=== PATIENT | male | born 1935 | race Caucasian/White ===

== ENCOUNTER → 2019-05-02 10:17 | Outpatient (BNVA) | payer MEDICARE, SELFPAY | PROVIDERS: Family Provider Nurse Practitioner Family; PCP Nurse Practitioner Family; Referring Provider Family Medicine; Visit Provider Nurse Practitioner Family | DX: E53.8 Deficiency of other specified B group vitamins (principal); Z12.5 Encounter for screening for malignant neoplasm of prostate; E34.9 Endocrine disorder, unspecified | CPT/HCPCS: 36415; 82607; 84153; 84402; 84403 ==

== ENCOUNTER 2019-05-20 09:25 | Outpatient (CLI) | payer MEDICARE, SELFPAY ==
--- NOTE | 2019-05-20 09:30 | MR_ITS ---
WS: [id number] MRI HEAD WITHOUT CONTRAST TECHNIQUE: Sagittal T1, T2 axial, T2 axial FLAIR, axial and coronal T1 images, axial susceptibility w eighted imaging, axial diffusion weighted images, and coronal T2 images were obtained. Gadolinium not administered due to stage III kidney disease. CLINICAL INFORMATION: symptomatic for CVA COMPARISON: CT 3 FINDINGS: No evidence of restricted diffusion to suggest acute ischemia. Ventricular system and basal cisterns are patent. Moderate small vessel changes with moderate parenchymal volume loss. Chronic infarcts in the right periventricular and subcortical white matter. Normal posterior fossa. Normal vascular flow voids at the skull base. No extra-axial fluid collections. No evidence of mass or mass effect. Small vessel changes in the lucio. Paranasal sinuses and mastoid air cells are well aerated. Small punctate focus of hemosiderin in the right lateral thalamus. Moderate atrophy involving the tem poral lobes and hippocampal formations. MR/MR head wo con* [id number] IMPRESSION: 1. No evidence of restricted diffusion to suggest acute ischemia. 2. Moderate small vessel changes with moderate parenchymal volume loss. 3. A few chronic appearing infarcts in the right subcortical white matter and right periventricular white matter. 4. Small vessel changes in the lucio. 5. Small focus of hemosiderin in the right lateral thalamus. 6. Moderate symmetric atrophy involving the temporal lobes and hippocampal for mations.
[2019-05-20 10:07] LABS: Blood Urea Nitrogen 19 mg/dL (8-23)
== END 2019-05-20 09:26 | disposition home or self-care (01) ==
LOC: RADSHAW 09:25
PROVIDERS: Family Provider Nurse Practitioner Family; PCP Nurse Practitioner Family; Visit Provider Nurse Practitioner Family
DX: I63.9 Cerebral infarction, unspecified (principal); G31.89 Other specified degenerative diseases of nervous system
CPT/HCPCS: 70551; 82565; 84520

== ENCOUNTER → 2019-06-18 12:18 | Outpatient (BNVA) | payer MEDICARE, SELFPAY | PROVIDERS: Family Provider Nurse Practitioner Family; PCP Nurse Practitioner Family; Visit Provider Nurse Practitioner Family | DX: N18.9 Chronic kidney disease, unspecified (principal); E53.8 Deficiency of other specified B group vitamins | CPT/HCPCS: 80048; 81001; 82310; 82575; 83735; 83970; 84100; 84156; 84550; 87086 ==

== ENCOUNTER → 2019-07-02 09:16 | Outpatient (BNVA) | payer MEDICARE, SELFPAY | PROVIDERS: Family Provider Nurse Practitioner Family; PCP Nurse Practitioner Family; Visit Provider Nurse Practitioner Family | DX: R53.83 Other fatigue (principal); E55.9 Vitamin D deficiency, unspecified; E34.9 Endocrine disorder, unspecified; I10 Essential (primary) hypertension; E53.8 Deficiency of other specified B group vitamins; Z79.899 Other long term (current) drug therapy; E78.2 Mixed hyperlipidemia; Z12.5 Encounter for screening for malignant neoplasm of prostate | CPT/HCPCS: 80053; 80061; 81001; 82306; 82607; 82652; 82746; 83036; 84403; 84439; 84443; 84481; G0103 ==

== ENCOUNTER → 2019-07-16 12:10 | Outpatient (BNVA) | payer MEDICARE, SELFPAY | PROVIDERS: Family Provider Nurse Practitioner Family; PCP Nurse Practitioner Family; Visit Provider Nurse Practitioner Family | DX: E87.6 Hypokalemia (principal); J22 Unspecified acute lower respiratory infection; L25.9 Unspecified contact dermatitis, unspecified cause; F41.9 Anxiety disorder, unspecified; G20 Parkinson's disease | CPT/HCPCS: 80053 ==

== ENCOUNTER 2019-09-16 06:00 | Outpatient (RCR) | payer MEDICARE, SELFPAY | END 2019-09-29 23:59 | disposition home or self-care (01) | LOC: WPT 06:00 | PROVIDERS: PCP Nurse Practitioner Family; Referring Provider Psychiatry & Neurology Neurology; Visit Provider Psychiatry & Neurology Neurology | DX: G20 Parkinson's disease (principal) | CPT/HCPCS: 97110; 97161 ==

== ENCOUNTER 2019-09-30 06:00 | Outpatient (RCR) | payer MEDICARE, SELFPAY | END 2019-10-29 23:59 | disposition home or self-care (01) | LOC: WPT 06:00 | PROVIDERS: PCP Nurse Practitioner Family; Visit Provider Psychiatry & Neurology Neurology | DX: G20 Parkinson's disease (principal) | CPT/HCPCS: 97110; 97112; 97116; 97161; 97530 ==

== ENCOUNTER → 2019-10-24 09:24 | Outpatient (BNVA) | payer MEDICARE, SELFPAY | PROVIDERS: PCP Nurse Practitioner Family; Visit Provider Nurse Practitioner Family | DX: E11.9 Type 2 diabetes mellitus without complications (principal); I10 Essential (primary) hypertension; G20 Parkinson's disease; E55.9 Vitamin D deficiency, unspecified; R53.83 Other fatigue; E34.9 Endocrine disorder, unspecified; E61.2 Magnesium deficiency | CPT/HCPCS: 36415; 80053; 81001; 82306; 82607; 83036; 83540; 83735; 84403; 84443; 85025 ==

== ENCOUNTER 2019-10-30 | Outpatient (RCR) | payer MEDICARE, SELFPAY | END 2019-10-30 23:00 | disposition home or self-care (01) | LOC: WPT | PROVIDERS: PCP Nurse Practitioner Family; Visit Provider Psychiatry & Neurology Neurology | DX: G20 Parkinson's disease (principal) | CPT/HCPCS: 80053; 81001 ==

== ENCOUNTER → 2020-05-19 10:04 | Outpatient (BNVA) | payer MEDICARE, SELFPAY | PROVIDERS: PCP Nurse Practitioner Family; Visit Provider Nurse Practitioner Family | DX: N40.1 Benign prostatic hyperplasia with lower urinary tract symptoms (principal); E29.1 Testicular hypofunction | CPT/HCPCS: 84153; 84403 ==

== ENCOUNTER → 2020-06-19 11:19 | Outpatient (BNVA) | payer MEDICARE, SELFPAY | PROVIDERS: PCP Nurse Practitioner Family; Visit Provider Internal Medicine Nephrology | DX: E53.8 Deficiency of other specified B group vitamins (principal); N18.30 Chronic kidney disease, stage 3 unspecified | CPT/HCPCS: 80048; 81003; 82043; 82310; 82607; 83735; 83970; 84100; 84550 ==

== ENCOUNTER → 2020-08-13 11:36 | Outpatient (BNVA) | payer MEDICARE, SELFPAY | PROVIDERS: PCP Nurse Practitioner Family; Visit Provider Nurse Practitioner Family | DX: E21.3 Hyperparathyroidism, unspecified (principal); I10 Essential (primary) hypertension; Z13.6 Encounter for screening for cardiovascular disorders; Z79.899 Other long term (current) drug therapy | CPT/HCPCS: 80053; 80061; 81003; 82310; 82652; 83036; 83970; 84439; 84443; 85025 ==

== ENCOUNTER → 2020-08-21 00:01 | Outpatient (BNVA) | payer MEDICARE, SELFPAY | PROVIDERS: PCP Nurse Practitioner Family; Visit Provider Nurse Practitioner Family | DX: E53.8 Deficiency of other specified B group vitamins (principal); N18.9 Chronic kidney disease, unspecified; F41.9 Anxiety disorder, unspecified; F32.9 Major depressive disorder, single episode, unspecified | CPT/HCPCS: 80053; 82043; 83921 ==

== ENCOUNTER → 2020-08-25 11:51 | Outpatient (BNVA) | payer MEDICARE, SELFPAY | PROVIDERS: PCP Nurse Practitioner Family; Visit Provider Nurse Practitioner Family | DX: E53.8 Deficiency of other specified B group vitamins (principal); I10 Essential (primary) hypertension | CPT/HCPCS: 80053; 82746 ==

== ENCOUNTER → 2020-09-15 09:51 | Outpatient (BNVA) | payer MEDICARE, SELFPAY | PROVIDERS: PCP Nurse Practitioner Family; Visit Provider Nurse Practitioner Family | DX: N18.9 Chronic kidney disease, unspecified (principal); I10 Essential (primary) hypertension; E21.3 Hyperparathyroidism, unspecified; E11.9 Type 2 diabetes mellitus without complications; Z79.899 Other long term (current) drug therapy | CPT/HCPCS: 36415; 80048; 82306; 82310; 83970; 84100 ==

== ENCOUNTER 2020-12-07 13:01 | Outpatient (CLI) | payer MEDICARE, SELFPAY ==
--- NOTE | 2020-12-07 13:00 | USCV_ITS ---
Juma Lewis Age: 85 Gender: M : 1935 Exam Date: 12/07/2020 13:24 Ordering Phys: DMITRY Parada APRN Technologist: Teresa Escamilla Exam Location: [facility] – [place] Indication: OPEN DOG BITE RT LOWER LATERAL LEG HISTORY: Pitbull dog bite rt lateral lower leg. PROCEDURES: Venous duplex imaging was performed in only the right lower extremity. The following venous structures were evaluated: common femoral vein, profunda vein, proximal portion of the greater saphenous vein, superficial femoral vein, and the popliteal vein. In addition, the posterior tibial and peroneal trunk were evaluated. Serial compression, augmentation maneuvers, and spectral Doppler flow evaluation were performed. Also area at the puncture wounds was exained. FINDINGS: Normal 2-D Doppler and augmentation and compressibility throughout the lower extremity venous structures. Additional imaging through the proximal calf veins also reveals no thrombus. Limited evaluation of the greater saphenous vein is patent with no thrombus.. Suggestion of a hematoma at site of injury. CONCLUSIONS No evidence of right lower extremity DVT. Subcutaneous edema or hematoma in area of dog bite Stephan Razo MD (Electronically Signed) Final Date: 07 December 2020 17:42 S
== END 2020-12-07 13:02 | disposition home or self-care (01) ==
PROVIDERS: PCP Nurse Practitioner Family; Visit Provider Nurse Practitioner Family
DX: S81.851A Open bite, right lower leg, initial encounter (principal); M79.89 Other specified soft tissue disorders; W54.0XXA Bitten by dog, initial encounter
CPT/HCPCS: 93971

== ENCOUNTER → 2021-01-18 11:44 | Outpatient (BNVA) | payer MEDICARE, SELFPAY | PROVIDERS: PCP Nurse Practitioner Family; Visit Provider Nurse Practitioner Family | DX: N18.31 Chronic kidney disease, stage 3a (principal); E11.9 Type 2 diabetes mellitus without complications; I10 Essential (primary) hypertension | CPT/HCPCS: 80048; 81003; 82040; 82310; 82542; 82575; 83036; 83735; 83970; 84100; 84156; 84550 ==

== ENCOUNTER → 2021-05-11 12:14 | Outpatient (BNVA) | payer MEDICARE, SELFPAY | PROVIDERS: PCP Nurse Practitioner Family; Visit Provider Nurse Practitioner Family | DX: N40.1 Benign prostatic hyperplasia with lower urinary tract symptoms (principal) | CPT/HCPCS: 36415; 84153; 84403 ==

== ENCOUNTER → 2021-07-19 13:27 | Outpatient (BNVA) | payer MEDICARE, SELFPAY | PROVIDERS: PCP Nurse Practitioner Family; Visit Provider Internal Medicine Nephrology | DX: N18.9 Chronic kidney disease, unspecified (principal) | CPT/HCPCS: 36415; 80048; 81003; 82040; 82310; 83735; 83970; 84100; 84550; 85018 ==

== ENCOUNTER → 2021-09-07 10:06 | Outpatient (BNVA) | payer MEDICARE, SELFPAY | PROVIDERS: PCP Nurse Practitioner Family; Visit Provider Nurse Practitioner | DX: R35.0 Frequency of micturition (principal); F41.9 Anxiety disorder, unspecified | CPT/HCPCS: 87086 ==

== ENCOUNTER → 2022-01-17 12:03 | Outpatient (BNVA) | payer MEDICARE, SELFPAY | PROVIDERS: PCP Nurse Practitioner; Visit Provider Nurse Practitioner | DX: I12.9 Hypertensive chronic kidney disease with stage 1 through stage 4 chronic kidney disease, or unspecified chronic kidney disease (principal); N18.30 Chronic kidney disease, stage 3 unspecified | CPT/HCPCS: 80048; 81003; 82040; 82306; 82542; 82570; 83735; 84100; 84156; 85018 ==

== ENCOUNTER → 2022-01-18 12:50 | Outpatient (BNVA) | payer MEDICARE, SELFPAY | PROVIDERS: PCP Nurse Practitioner; Visit Provider Internal Medicine | DX: I12.9 Hypertensive chronic kidney disease with stage 1 through stage 4 chronic kidney disease, or unspecified chronic kidney disease (principal); E11.22 Type 2 diabetes mellitus with diabetic chronic kidney disease; N18.9 Chronic kidney disease, unspecified; Z79.84 Long term (current) use of oral hypoglycemic drugs; R42 Dizziness and giddiness | CPT/HCPCS: 99213; 99214 ==

== ENCOUNTER → 2022-05-17 15:14 | Outpatient (BNVA) | payer MEDICARE, SELFPAY | PROVIDERS: PCP Nurse Practitioner; Visit Provider Nurse Practitioner | DX: N40.1 Benign prostatic hyperplasia with lower urinary tract symptoms (principal); E29.1 Testicular hypofunction; N40.0 Benign prostatic hyperplasia without lower urinary tract symptoms | CPT/HCPCS: 84153; 84403 ==

== ENCOUNTER → 2022-10-18 14:07 | Outpatient (BNVA) | payer MEDICARE, SELFPAY | PROVIDERS: PCP Nurse Practitioner; Visit Provider Internal Medicine | DX: I12.9 Hypertensive chronic kidney disease with stage 1 through stage 4 chronic kidney disease, or unspecified chronic kidney disease (principal); E11.22 Type 2 diabetes mellitus with diabetic chronic kidney disease; N18.9 Chronic kidney disease, unspecified; R42 Dizziness and giddiness | CPT/HCPCS: 99213 ==

== ENCOUNTER → 2022-11-11 11:27 | Outpatient (BNVA) | payer MEDICARE, SELFPAY | PROVIDERS: PCP Nurse Practitioner; Visit Provider Surgery | DX: R31.9 Hematuria, unspecified (principal) | CPT/HCPCS: 81000 ==

== ENCOUNTER 2022-11-17 11:18 | Outpatient (CLI) | payer MEDICARE, SELFPAY ==
--- NOTE | 2022-11-17 11:31 | MR_ITS ---
WS: [id number] MRI HEAD WITHOUT CONTRAST TECHNIQUE: Sagittal T1, T2 axial, T2 axial FLAIR, axial and coronal T1 images, axial susceptibility w eighted imaging, axial diffusion weighted images, and coronal T2 images were obtained. CLINICAL INFORMATION: WEAKNESS/DISORIENTATION COMPARISON: MRI May 20, 2019 FINDINGS: No evidence of restricted diffusion to suggest acute ischemia. Ventricular system and basal cisterns are patent. Mild small vessel changes. Moderate parenchymal volume loss. Chronic lacunar infarcts in the cerebellum bilaterally. These are new from previous. Normal vascular flow voids at the skull base . No extra-axial fluid collections. No evidence of mass or mass effect. Paranasal sinuses and mastoid air cells well aerated. Small focus of hemosiderin in the RIGHT lateral thalamus. Moderate to advanced symmetric atrophy temp oral lobes and hippocampal formations. Normal optic chiasm and pituitary infundibulum. Tiny chronic l acunar infarct in the RIGHT periventricular white matter. Tiny chronic lacunar infarcts in the LEFT m idbrain and RIGHT lucio. MR/MR head wo con* [id number] IMPRESSION: 1. No evidence of restricted diffusion to suggest acute ischemia. 2. Mild small vessel changes slightly progressed. Moderate parenchymal volume loss appears stable. 3. Multiple chronic lacunar infarcts in the cerebellum bilaterally. New from p revious. 4. Small chronic lacunar infarcts in the RIGHT periventricular white matter, t iny LEFT midbrain, and tiny RIGHT lucio are stable compared to previous. 5. Tiny punctate focus of chronic hemosiderin in the RIGHT lateral thalamus al leonora the posterior limb internal capsule. 6. Moderate symmetric atrophy temporal lobes and hippocampal formations.
== END 2022-11-17 11:19 | disposition home or self-care (01) ==
PROVIDERS: PCP Nurse Practitioner; Visit Provider Psychiatry & Neurology Neurology
DX: R53.1 Weakness (principal); R41.0 Disorientation, unspecified; Z86.73 Personal history of transient ischemic attack (TIA), and cerebral infarction without residual deficits
CPT/HCPCS: 70551

== ENCOUNTER 2022-11-22 14:25 | Outpatient (CLI) | payer MEDICARE, SELFPAY ==
--- NOTE | 2022-11-22 | US_ITS ---
WS: [id number] RENAL ULTRASOUND URINARY BLADDER ULTRASOUND HISTORY: STAGE 3 CHRONIC KIDNEY DISEASE COMPARISON: None available. TECHNIQUE: 2-D and color Doppler imaging of the kidney submitted. Right kidney: 10.3 cm x 4.3 cm x 4.7 cm. Normal size kidney with mild increased echogenicity. No mass or obstruction. Left kidney: 10.8 cm x 4.9 cm x 5.3 cm. Normal size kidney with mild increased echogenicity. Cortical cyst mid kidney measures 2.6 x 2.3 x 1. 6 cm. No solid mass. Aorta: Normal. Urinary Bladder: Well-distended urinary bladder. No intraluminal filling defect. Prevoid volume is 30 1 mL. Post void volume of 144 mL. Mildly heterogeneous prostate gland. Prostate measures 4.3 x 3.0 x 3.4 cm. No significant encroachmen t into the urinary bladder. US/US renal BI with PV bladder IMPRESSION: 1. Mild chronic medical renal disease. No atrophy at this time. 2. No renal obstruction. 3. Moderate post void residual.
[2022-11-22 15:39] LABS: Blood Urea Nitrogen 19 mg/dL (8-23); Calcium 8.9 mg/dL (8.5-10.5); Carbon Dioxide 30 mmol/L (22-29); Chloride 102 mmol/L (98-107); Glucose 96 mg/dL (65-115); Osmolality Calculated 290 mOsm/kg (285-295); Sodium 139 mmol/L (136-145)
[2022-11-22 15:50] LABS: Anion Gap 11.6 (5-19); Potassium 4.6 mmol/L (3.5-5.1)
== END 2022-11-22 14:26 | disposition home or self-care (01) ==
PROVIDERS: PCP Nurse Practitioner; Visit Provider Internal Medicine
DX: N18.30 Chronic kidney disease, stage 3 unspecified (principal)
CPT/HCPCS: 36415; 76770; 76857; 80048

== ENCOUNTER 2022-12-29 06:00 | Outpatient (RCR) | payer MEDICARE, SELFPAY | END 2022-12-29 23:59 | disposition home or self-care (01) | LOC: WPT 06:00 | PROVIDERS: Visit Provider Psychiatry & Neurology Neurology | DX: G20 Parkinson's disease (principal) | CPT/HCPCS: 97110; 97162 ==

== ENCOUNTER 2022-12-30 06:00 | Outpatient (RCR) | payer MEDICARE, SELFPAY | END 2023-01-28 23:59 | disposition home or self-care (01) | LOC: WPT 06:00 | PROVIDERS: Visit Provider Psychiatry & Neurology Neurology | DX: G20 Parkinson's disease (principal) | CPT/HCPCS: 97110; 97112; 97530 ==

== ENCOUNTER 2023-01-29 06:00 | Outpatient (RCR) | payer MEDICARE, SELFPAY | END 2023-02-28 23:59 | disposition home or self-care (01) | LOC: WPT 06:00 | PROVIDERS: Visit Provider Psychiatry & Neurology Neurology | DX: G20.A1 Parkinson's disease without dyskinesia, without mention of fluctuations (principal) | CPT/HCPCS: 97110; 97112; 97530 ==

== ENCOUNTER 2023-03-01 06:00 | Outpatient (RCR) | payer MEDICARE, SELFPAY | END 2023-03-30 23:59 | disposition home or self-care (01) | LOC: WPT 06:00 | PROVIDERS: PCP Nurse Practitioner Family; Visit Provider Psychiatry & Neurology Neurology | DX: G20.C Parkinsonism, unspecified (principal) | CPT/HCPCS: 97110; 97112; 97530 ==

== ENCOUNTER 2023-03-31 06:00 | Outpatient (RCR) | payer MEDICARE, SELFPAY | END 2023-04-30 23:59 | disposition home or self-care (01) | LOC: WPT 06:00 | PROVIDERS: PCP Nurse Practitioner Family; Visit Provider Psychiatry & Neurology Neurology | DX: G20.C Parkinsonism, unspecified (principal) | CPT/HCPCS: 97110; 97112; 97530 ==

== ENCOUNTER → 2023-04-12 14:34 | Outpatient (BNVA) | payer MEDICARE, SELFPAY | PROVIDERS: PCP Nurse Practitioner Family; Visit Provider Nurse Practitioner Family | DX: R10.9 Unspecified abdominal pain (principal) | CPT/HCPCS: 80053; 81003; 83735; 84100; 85025 ==

== ENCOUNTER → 2023-06-26 13:23 | Outpatient (BNVA) | payer MEDICARE, SELFPAY | PROVIDERS: PCP Nurse Practitioner Family; Visit Provider Nurse Practitioner Family | DX: R53.83 Other fatigue (principal); I10 Essential (primary) hypertension; E53.8 Deficiency of other specified B group vitamins; N18.9 Chronic kidney disease, unspecified; E21.3 Hyperparathyroidism, unspecified; Z79.899 Other long term (current) drug therapy | CPT/HCPCS: 80053; 81000; 82607; 82728; 82746; 83036; 84443; 85025 ==

== ENCOUNTER 2023-07-05 11:24 | Emergency (ER) | payer MEDICARE, SELFPAY ==
[2023-07-05] VITALS (7 sets, daily range): BP systolic 149–201; BP diastolic 81–97; PULSE 61–89; RESP 18; TEMP 36.4; O2SAT 98–100
--- NOTE | 2023-07-05 12:26 | CT_ITS ---
WS: [id number] CT ABDOMEN PELVIS TECHNIQUE: Noncontrast CT of the abdomen and pelvis with coronal and sagittal reformatted images. CLINICAL INFORMATION: right flank pain COMPARISON: None. DLP: 591.[address] scans at [facility] use at least one of these dose optimization techniques: automated e xposure control; mA and/or kV adjustment per patient size (includes targeted exams where dose is matc hed to clinical indication); or iterative reconstruction. FINDINGS: No hydronephrosis in either kidney. No obstructing renal or ureteral calculi. Evidence of bladder outlet obstruction. Diffuse bladder wall thickening. Enlarged prostate with inden tation of the bladder. Prostate measures 3.2 x 4.3 cm thickening of the seminal vesicles.. Slight bib nikkie atelectasis. Tiny esophageal hiatal hernia. Noncontrast liver is normal. Splenic granulomas. Fat ty atrophy of the pancreas. Normal caliber abdominal aorta. Aortic calcification. Rectal constipation. Sigmoid diverticulosis. No evidence of acute diverticulitis. Prior appendectomy. Prior cholecystectomy. Tiny bilateral adrenal adenomas. Disc space narrowing worse at L5-S1. IMPRESSION: 1. No hydronephrosis in either kidney. No obstructing renal or ureteral calculi. 2. Enlarged prostate with evidence of bladder outlet obstruction. Thickening of the seminal vesicles . Recommend correlation PSA. 3. Prior appendectomy and cholecystectomy. 4. Dense sigmoid constipation. 5. Extensive sigmoid diverticulosis. No evidence of acute diverticulitis.
--- NOTE | 2023-07-05 12:42 | PC.PHAR ---
pts daughter verified pts medications-pts daughter states the pt takes modafinil 100mg daily prn ext shows last filled 50mg bid 03/31/23 90d/s-pts daughter states the pts flomax was increased last week pts daughter states the pt takes flomax 0.8mg bedtime ext shows last filled 05/03/23 90d/s-pts daughter states the pts desmopression 0.1mg hs was dced
--- NOTE | 2023-07-05 12:59 | ED_ITS ---
HPI - Back Pain/Injury 2 General: Chief Complaint: Back Pain/Injury Stated Complaint: back pain Time Seen by Provider: 07/05/23 12:21 Source: patient Mode of arrival: ambulatory Limitations: no limitations History of Present Illness: 87-year-old male states been having inte rmittent flank and back pain for the last 3 months. He states his pain seems to be worse with movement he states this morning when he got out of bed it hurt to twist states the pain is improved with rest. He states his PCP had felt that it was possibly his kidney he does have a history of some chronic kidney disease he denies any dysuria denies any abdominal pain denies any vomiting Associated symptoms: Deny abdominal pain, chills, dysuria, fever(s), nausea or vomiting Review of Systems 2 Const: Denies: fever(s), chills, body aches or change in appetite ENMT: Denies: throat pain or dental pain Card: Denies: chest pain Resp: Denies: dyspnea GI: Denies: abdominal pain, nausea, vomiting or diarrhea : Reports: flank pain; Denies: dysuria Musc: Reports: back pain; Denies: neck pain Skin/Breast: Denies: rash Neuro: Denies: headache(s) PFSH ED 2 PFSH: Medical History BPH (benign prostatic hyperplasia) Right flank pain Need for vaccination Dental infection Hematoma Dog bite of calf Vitamin B 12 deficiency Hypertension screen Hyperparathyroidism Chronic kidney disease (CKD) Diabetes Essential hypertension Parkinsons disease Patient recently diagnosed (06/2019) with Stage 2 Parkinson's in [place]. Anxiety and depression Needs flu shot CVA (cerebral vascular accident) 05/10/18 Patient has symtpoms of CVA and has scheduled appointment with Neurologist in [place]. Patient needs to have MRI w/wo. Social History Smoking and tobacco/nicotine status: never used tobacco/nicotine Physical Exam 2 Const: COMMON NORMALS: no acute distress, patient oriented x3 and healthy appearing HENMT: COMMON NORMALS: normocephalic and atraumatic HEAD & SCALP: n ormocephalic and atraumatic Neck/C-Spine: COMMON NORMALS: full ROM and supple Chest: COMMONS NORMALS: normal inspection of the chest Resp: COMMON NORMALS: normal respiratory effort, No retractions, No use of accessory muscles and clear to auscultation bilaterally AUSCULTATION: clear to auscultation bilaterally Cardio: COMMON NORMALS: regular rate, regular rhythm and No murmurs present (Cardio) RATE: regular rate RHYTHM: regular rhythm GI: COMMON NORMALS: Normal to inspection, nondistended, normoactive bowel sounds present, Soft to palpation, non-tender and no masses PALPATION: Yes Soft to palpation : COMMON NORMALS: Yes no CVA tenderness BLADDER/KIDNEY EXAM: Yes no CVA tenderness Back/Pelvis: COMMON NORMALS: no CVA tenderness OTHER: Tenderness is noted to right lower back he is point tender on exam over right lumbar Extremity: COMMON NORMALS: normal to inspection and full ROM Neuro: COMMON NORMALS: patient oriented x3, moves all extremities and no focal motor deficits Psych: COMMON NORMALS: mental status grossly normal, Normal thought process present and cooperative THOUGHT PROCESS: Normal thought process present Skin: COMMON NORMALS: no rashes or lesions noted and no wounds GENERAL SKIN EXAM: no rashes or lesions noted Course 2 Vital Signs: Vital signs: Vital Signs Temperature 97.6 F 07/05/23 11:37 Pulse Rate 64 07/05/23 14:30 Respiratory Rate 18 07/05/23 11:37 Blood Pressure 201/88 07/05/23 14:30 Pulse Oximetry 100 07/05/23 14:30 Oxygen Delivery Me thod Room Air 07/05/23 14:30 MDM - Back Pain/Injury Medical Decision Making Patient presents here with flank and back pains likely muscular in nature he is point tender on exam patient is stable for discharge this [facility] blood work and urine are all normal. He is stable for discharge he is follow-up with PCP and return if worsening he has had some hypertensive here and I informed him he needs to take a log as well Medical Records I reviewed the patient's medical records. Labs I reviewed the patient's lab results. 07/05/23 12:45 07/05/23 12:45 Laboratory Results WBC 7.35 10^3/uL (3.29-11.43) 07/05/23 12:45 RBC 3.88 10^6/uL (3.85-5.65) 07/05/23 12:45 Hgb 11.50 g/dL (11.27-16.99) 07/05/23 12:45 Hct 36.1 % (37-53) L 07/05/23 12:45 MCV 93.0 fl (82-101) 07/05/23 12:45 MCH 29.6 pg (27-33) 07/05/23 12:45 MCHC 31.9 g/dL (30-55) 07/05/23 12:45 RDW 14.5 % (12.1-15.1) 07/05/23 12:45 Plt Count 229 10^3/cmm (157-399) 07/05/23 12:45 MPV 10.9 fL (7.4-10.4) H 07/05/23 12:45 Neut % (Auto) 61.3 % 07/05/23 12:45 Lymph % (Auto) 25.4 % 07/05/23 12:45 [place] % (Auto) 11.0 % 07/05/23 12:45 Eos % (Auto) 1.6 % 07/05/23 12:45 Baso % (Auto) 0.4 % 07/05/23 12:45 Neut # (Auto) 4.50 10^3/uL (1.8-7.7) 07/05/23 12:45 Lymph # (Auto) 1.9 10^3/uL (0.8-4.8) 07/05/23 12:45 [place] # (Auto) 0.8 10^3/uL (0.2-0.9) 07/05/23 12:45 Eos # (Auto) 0.1 10^3/uL (0.0-0.8) 07/05/23 12:45 Baso # (Auto) 0.0 10^3/uL (0.0-0.1) 07/05/23 12:45 Nucleated RBC % (auto) 0 % 07/05/23 12:45 Nucleated RBCs # 0.0 /100WBC 07/05/23 12:45 Sodium 139 mmol/L (136-145) 07/05/23 12:45 Potassium 4.0 mmol/L (3.5-5.1) 07/05/23 12:45 Chloride 103 mmol/L (98-107) 07/05/23 12:45 Carbon Dioxide 28 mmol/L (22-29) 07/05/23 12:45 Anion Gap 12.0 (5-19) 07/05/23 12:45 BUN 32 mg/dL (8-23) H 07/05/23 12:45 Creatinine 1.6 mg/dL (0.7-1.2) H 07/05/23 12:45 GFR Calculation Not Reportable 07/05/23 12:45 Glucose 88 mg/dL (65-115) 07/05/23 12:45 Calculated Osmolality 294 mOsm/kg (285-295) 07/05/23 12:45 Calcium 8.7 mg/dL (8.5-10.5) 07/05/23 12:45 Total Bilirubin 0.4 mg/dL (0.15-1.2) 07/05/23 12:45 AST 13 U/L (0-40) 07/05/23 12:45 ALT < 5 U/L (0-41) 07/05/23 12:45 Alkaline Phosphatase 61 U/L (40-130) 07/05/23 12:45 Total Protein 6.9 g/dL (6.6-8.7) 07/05/23 12:45 Albumin 3.5 g/dL (3.5-5.2) 07/05/23 12:45 Globulin 3.4 g/dL (1.3-4.6) 07/05/23 12:45 Lipase 52 U/L (13-60) 07/05/23 12:45 Urine Color Yellow (Yellow) 07/05/23 13:43 Urine Appearance Clear (CLEAR) 07/05/23 13:43 Urine pH 6 (5-7) 07/05/23 13:43 Ur Specific [place] 1.020 (1.005-1.030) 07/05/23 13:43 Urine Protein 1+ (Negative) H 07/05/23 13:43 Urine Glucose (UA) Norm (Normal) 07/05/23 13:43 Urine Ketones Negative (Negative) 07/05/23 13:43 Urine Blood Neg (Negative) 07/05/23 13:43 Urine Nitrate Negative (Negative) 07/05/23 13:43 Urine Bilirubin Neg (Negative) 07/05/23 13:43 Urine Urobilinogen Norm mg/dL (Negative) 07/05/23 13:43 Ur Leukocyte Esterase Negative (Negative) 07/05/23 13:43 Urine RBC Rare /hpf (0-2) 07/05/23 13:43 Urine WBC Rare /hpf (0-5) 07/05/23 13:43 Ur Squamous Epith Cells None /hpf (0-5) 07/05/23 13:43 Ur Transition Epith Cell 0-4 /hpf 07/05/23 13:43 Amorphous Sediment Not Reportable 07/05/23 13:43 Urine Bacteria Trace /hpf (NONE) 07/05/23 13:43 Hyaline Casts 5-10 /lpf H 07/05/23 13:43 Urine Mucus 2+ /hpf 07/05/23 13:43 All radiology interpretation(s) finalized by discharge Discharge Plan Discharge Patient Disposition: Home Clinical Impression: Low back pain Condition: Stable Prescriptions: New methocarbamol 750 mg tablet 750 mg PO Q6H PRN (Reason: spasms) Qty: 20 0RF Naprosyn 500 mg tablet 500 mg PO BID PRN (Reason: pain) Qty: 20 0RF No Action carbidopa-levodopa 25-100 mg tablet See Rx Instructions .ROUTE .COMPLEX Rx Instructions: take one tab at 3:00am,one tab at 7:00am,one and one half tab at 11:00,one tab at 15:00 and one tab at 19:00 modafinil 100 mg tablet 100 mg PO DAILY PRN (Reason: unknown) brimonidine-timolol [Combigan] 0.2-0.5 % drops 1 drp ophthalmic (eye) BID Rx Instructions: both eyes calcitriol 0.25 mcg capsule 0.25 mcg PO .TWICE WEEKLY Rx Instructions: on tamsulosin 0.4 mg capsule 0.8 mg PO BEDTIME cyanocobalamin (vitamin B-12) 1,000 mcg/mL solution 1,000 mcg IM Q30D valsartan 80 mg tablet 80 mg PO BID Qty: 180 3RF potassium chloride [Klor-Con M20] 20 mEq tablet,ER particles/crystals 20 meq PO QID Qty: 360 3RF iron 325 mg (65 mg iron) Tablet 325 mg PO DAILY@11 testosterone 20.25 mg/1.25 gram (1.62 %) gel in metered-dose pump See Rx Instructions .ROUTE .COMPLEX Rx Instructions: apply 2 pumps TO shoulders AND upper ARMS EVERY MORNING Tadalafil 20mg Melissa See Rx Instructions .ROUTE .COMPLEX Rx Instructions: with tri-mix injectable as directed citalopram 10 mg tablet 10 mg PO QPM Rx Instructions: take with 20mg to =30mg citalopram 20 mg tablet 20 mg PO QPM Rx Instructions: take with 10mg to =30mg Discharge Orders: Discharge ED (Routine); Ordered 07/05/23 Ordered By: Davi Hahn Referrals: DMITRY Parada, FINISHING ROOM OPERATOR [Primary Care Provider] - 1-3 days Discharge Diet: Advance as tolerated Discharge Activity: Resume usual activity Patient Instructions: Back Pain (ED) Coding Level of Care Code ED Front Desk Supervisor for David Casas
[2023-07-05 13:19] LABS: Basophils % 0.4 %; Eosinophils # 0.1 10^3/uL (0.0-0.8); Eosinophils % 1.6 %; Hematocrit 36.1 % (37-53); Lymphocytes # 1.9 10^3/uL (0.8-4.8); Lymphocytes % 25.4 %; Mean Corpuscular HGB Conc 31.9 g/dL (30-55); Mean Corpuscular Hemoglobin 29.6 pg (27-33); Mean Platelet Volume 10.9 fL (7.4-10.4); Monocytes # 0.8 10^3/uL (0.2-0.9); Neutrophils % 61.3 %; Nucleated Red Blood Cells % 0 %; Platelet Count 229 10^3/cmm (157-399); Red Blood Count 3.88 10^6/uL (3.85-5.65); Red Cell Distribution Width 14.5 % (12.1-15.1); White Blood Count 7.35 10^3/uL (3.29-11.43)
[2023-07-05 13:38] LABS: Alanine Aminotransferase < 5 U/L (0-41); Albumin Level 3.5 g/dL (3.5-5.2); Alkaline Phosphatase 61 U/L (40-130); Aspartate Amino Transferase 13 U/L (0-40); Blood Urea Nitrogen 32 mg/dL (8-23); Calcium 8.7 mg/dL (8.5-10.5); Carbon Dioxide 28 mmol/L (22-29); Chloride 103 mmol/L (98-107); Globulin 3.4 g/dL (1.3-4.6); Glucose 88 mg/dL (65-115); Lipase 52 U/L (13-60); Osmolality Calculated 294 mOsm/kg (285-295); Sodium 139 mmol/L (136-145); Total Bilirubin 0.4 mg/dL (0.15-1.2); Total Protein 6.9 g/dL (6.6-8.7)
[2023-07-05 13:48] LABS: Creatinine Clr Calc Pharmacy 36.8502
[2023-07-05 14:23] LABS: Add Urine Microscopic? YES; Bilirubin Urine Neg (Negative); Blood Urine Neg (Negative); Glucose Urine UA Norm (Normal); Ketones Urine Negative (Negative); Leukocyte Esterase Urine Negative (Negative); Nitrate Urine Negative (Negative); Protein Urine 1+ (Negative); Urine Appearance Clear (CLEAR); Urine Color Yellow (Yellow); Urobilinogen Urine Norm (Negative); pH Urine 6 (5-7)
[2023-07-05 14:39] LABS: Add Urine Culture? No; Bacteria Urine TRACE /hpf; Mucus Urine 2+ /hpf; RBC Urine RARE /hpf (0-2); Transitional Epi Cells Urine 0-4 /hpf; WBC Urine RARE /hpf (0-5)
[2023-07-05] MEDS: hyDRALAzine 20 mg/mL INJ 1 mL 10 MG IVP (14:41)
== END 2023-07-05 15:25 | disposition home or self-care (01) ==
PROVIDERS: Emergency Provider Emergency Medicine; PCP Nurse Practitioner Family
DX: M54.50 Low back pain, unspecified (principal); I12.9 Hypertensive chronic kidney disease with stage 1 through stage 4 chronic kidney disease, or unspecified chronic kidney disease; E11.22 Type 2 diabetes mellitus with diabetic chronic kidney disease; N18.9 Chronic kidney disease, unspecified; G20.A1 Parkinson's disease without dyskinesia, without mention of fluctuations; Z86.73 Personal history of transient ischemic attack (TIA), and cerebral infarction without residual deficits
CPT/HCPCS: 36415; 74176; 80053; 81001; 83690; 85025; 96374; 99285; J0360

== ENCOUNTER → 2023-07-19 14:26 | Outpatient (BNVA) | payer MEDICARE, SELFPAY | PROVIDERS: PCP Nurse Practitioner Family; Visit Provider Internal Medicine | DX: I10 Essential (primary) hypertension (principal); R42 Dizziness and giddiness | CPT/HCPCS: 99213 ==

== ENCOUNTER → 2023-07-27 10:47 | Outpatient (BNVA) | payer MEDICARE, SELFPAY | PROVIDERS: PCP Nurse Practitioner Family; Visit Provider Nurse Practitioner Family | DX: D64.9 Anemia, unspecified (principal) | CPT/HCPCS: 82728; 83540 ==

== ENCOUNTER → 2023-09-07 11:05 | Outpatient (BNVA) | payer MEDICARE, SELFPAY | PROVIDERS: PCP Nurse Practitioner Family; Visit Provider Nurse Practitioner Family | DX: N18.9 Chronic kidney disease, unspecified (principal); D64.9 Anemia, unspecified | CPT/HCPCS: 80053; 81003; 82728; 83550; 85025 ==

== ENCOUNTER → 2023-09-19 10:52 | Outpatient (BNVA) | payer MEDICARE, SELFPAY | PROVIDERS: PCP Nurse Practitioner Family; Visit Provider Nurse Practitioner Family | DX: D64.9 Anemia, unspecified (principal); E83.51 Hypocalcemia; E55.9 Vitamin D deficiency, unspecified; E53.8 Deficiency of other specified B group vitamins | CPT/HCPCS: 80053; 82306; 82607; 82746 ==

== ENCOUNTER → 2023-10-11 12:52 | Outpatient (BNVA) | payer MEDICARE, SELFPAY | PROVIDERS: PCP Nurse Practitioner Family; Visit Provider Family Medicine | DX: Z13.6 Encounter for screening for cardiovascular disorders (principal); N18.9 Chronic kidney disease, unspecified; G20.A2 Parkinson's disease without dyskinesia, with fluctuations; E61.1 Iron deficiency | CPT/HCPCS: 80053; 83550; 85025 ==

== ENCOUNTER → 2023-10-17 11:42 | Outpatient (BNVA) | payer MEDICARE, SELFPAY | PROVIDERS: PCP Nurse Practitioner Family; Visit Provider Family Medicine | DX: Z13.6 Encounter for screening for cardiovascular disorders (principal); N18.9 Chronic kidney disease, unspecified; G20.A2 Parkinson's disease without dyskinesia, with fluctuations; E61.1 Iron deficiency | CPT/HCPCS: 80053; 83550 ==

== ENCOUNTER 2023-11-30 18:33 | Emergency (ER) | payer MEDICARE, SELFPAY ==
[2023-11-30 18:38] VITALS: BP 189/82; PULSE 72; RESP 17; TEMP 36.7; O2SAT 98; BMI 25.8
--- NOTE | 2023-11-30 18:58 | CTR_ITS ---
PROCEDURE INFORMATION: Exam: CT Cervical Spine Without Contrast Exam date and time: 11/30/2023 8:10 PM Age: 88 years old Clinical indication: Injury or trauma; Fall; Blunt trauma TECHNIQUE: Imaging protocol: Computed tomography of the cervical spine without contrast. Radiation optimization: All CT scans at this facility use at least one of these dose optimization techniques: automated exposure control; mA and/or kV adjustment per patient size (includes targeted exams where dose is matched to clinical indication); or iterative reconstruction. COMPARISON: CT head wo con* [id number] 11/30/2023 8:10 PM RADIATION DOSE METRICS: Total DLP (mGy-cm): 705.2 FINDINGS: Bones: No acute fracture. Normal alignment. No severe spinal canal stenosis. No significant neural foraminal narrowing. Mild degenerative changes with small endplate osteophytes and facet arthropathy. Lungs: Biapical pleural-parenchymal scarring. Soft tissues: Unremarkable. CT/CT cervical spin wo con* [id number] IMPRESSION: No acute fractures or subluxations. Mild cervical spondylosis.
--- NOTE | 2023-11-30 18:58 | XRR_ITS ---
PROCEDURE INFORMATION: Exam: XR Right Hip Exam date and time: 11/30/2023 7:52 PM Age: 88 years old Clinical indication: Injury or trauma; Fall; Other: Pain; Additional info: Fall, pelvic and RT hip pain, RT leg externally rotated upon arrival TECHNIQUE: Imaging protocol: Radiologic exam of the right hip. Views: 1 view hip with pelvis when performed. COMPARISON: CT kidney stone [id number] 07/05/2023 12:46 PM FINDINGS: Bones/joints: No acute fractures or subluxations. The femoral heads are well seated within the bilateral acetabula. The pubic symphysis and sacroiliac joints are well aligned. Moderate degenerative changes of the bilateral hips, right greater than left, with joint space narrowing and subchondral sclerosis. Soft tissues: Unremarkable. XR/XR hip RT 2-3V wo/w pel* [id number] IMPRESSION: No acute fractures or subluxations.
--- NOTE | 2023-11-30 18:58 | CTR_ITS ---
PROCEDURE INFORMATION: Exam: CT Head Without Contrast Exam date and time: 11/30/2023 8:10 PM Age: 88 years old Clinical indication: Injury or trauma; Fall; Abrasion; Forehead TECHNIQUE: Imaging protocol: Computed tomography of the head without contrast. Radiation optimization: All CT scans at this facility use at least one of these dose optimization techniques: automated exposure control; mA and/or kV adjustment per patient size (includes targeted exams where dose is matched to clinical indication); or iterative reconstruction. COMPARISON: MR head wo con* [id number] 11/17/2022 11:49 AM RADIATION DOSE METRICS: Total DLP (mGy-cm): 1256 FINDINGS: Brain: No acute intracranial hemorrhage or territorial infarction. No mass effect or midline shift. Chronic infarct within periventricular right frontal lobe. Chronic lacunar infarcts within the cerebellar hemispheres. Moderate microangiopathy. Cerebral ventricles: No ventriculomegaly. Paranasal sinuses: Visualized sinuses are unremarkable. No fluid levels. Mastoid air cells: Visualized mastoid air cells are well aerated. Bones: Unremarkable. No acute fracture. Soft tissues: Small abrasion to the forehead. CT/CT head wo con* [id number] IMPRESSION: 1. No acute intracranial findings. 2. Chronic infarctions in the periventricular right frontal lobe and bilateral cerebellar hemispheres. 3. Moderate microangiopathy.
[2023-11-30 19:50] VITALS: BP 220/102; PULSE 76; RESP 16; O2SAT 98
--- NOTE | 2023-11-30 20:04 | ED_ITS ---
HPI - Extremity Problem General: Chief complaint: Extremity Injury, Lower Stated complaint: fall, hit head, pelvis/ hip pain Time Seen by Provider: 11/30/23 19:48 History of Present Illness: 88-year-old male presents with right hip pain. Patient fell earlier today around 330. Patient reports he had a misstep going into his house when he fell. He has had a hard time bearing weight and pain with movement. He complains a little bit of weakness in the left hip but mainly discomfort in the right hip. Associated symptoms: Deny chest pain or fever(s) Review of Systems Const: Denies: fever(s) or chills Card: Denies: chest pain or palpitations Resp: Denies: dyspnea, productive cough or non-productive cough GI: Denies: abdominal pain, nausea or vomiting Musc: Reports: joint pain (Right hip); Denies: neck pain or back pain Neuro: Denies: headache(s), sensory changes or dizziness PFSH ED PFSH: Medical History Hypocalcemia Vitamin D deficiency Anemia BPH (benign prostatic hyperplasia) Right flank pain Need for vaccination Dental infection Hematoma Dog bite of calf Vitamin B 12 deficiency Hypertension screen Hyperparathyroidism Chronic kidney disease (CKD) Diabetes Essential hypertension Parkinsons disease Patient recently diagnosed (06/2019) with Stage 2 Parkinson's in [place]. Anxiety and depression Needs flu shot CVA (cerebral vascular accident) 05/10/18 Patient has symtpoms of CVA and has scheduled appointment with Neurologist in [place]. Patient needs to have MRI w/wo. Social History Smoking and tobacco/nicotine status: never used tobacco/nicotine Physical Exam Const: COMMON NORMALS: no acute distress, patient oriented x3 and alert Resp: COMMON NORMALS: normal respiratory effort, No retractions, No use of accessory muscles and clear to auscultation bilaterally AUSCULTATION: clear to auscultation bilaterally Cardio: COMMON NORMALS: regular rate RATE: regular rate GI: COMMON NORMALS: Soft to palpation and non-tender PALPATION: Yes Soft to palpation Extremity: RIGHT LOWER EXTREMITY: Yes hip joint (Tender to palpation, externally rotated and shortened) LEFT LOWER EXTREMITY: Yes hip joint (Mild tenderness) Neuro: COMMON NORMALS: patient oriented x3, no focal motor deficits and no sensory deficits noted SENSORIUM/ORIENTATION: Yes alert Course Vital Signs: Vital signs: Vital Signs Temperature 98.1 F 11/30/23 18:38 Pulse Rate 76 11/30/23 19:50 Respiratory Rate 16 11/30/23 20:35 Blood Pressure 220/102 11/30/23 19:50 Pulse Oximetry 98 11/30/23 19:50 Oxygen Delivery Me thod Room Air 11/30/23 19:50 MDM - Extremity (Nontraumatic) Medical Decision Making Patient imaging studies ordered reviewed with final interpretation per radiology report. Patient shows no acute findings on his hip and pelvis x-rays and no acute findings on his head CT. Patient's symptoms are consistent with right hip contusion from the fall. Patient is stable and ready be discharged home. Lab Data Radiology Impressions Cervical Spine CT 11/30/23 18:58 IMPRESSION: No acute fractures or subluxations. Mild cervical spondylosis. Head CT 11/30/23 18:58 IMPRESSION: 1. No acute intracranial findings. 2. Chronic infarctions in the periventricular right frontal lobe and bilateral cerebellar hemispheres. 3. Moderate microangiopathy. Hip/Pelvis X-Ray 11/30/23 18:58 IMPRESSION: No acute fractures or subluxations. All radiology interpretation(s) finalized by discharge Discharge Plan Discharge Patient Disposition: Home Clinical Impression: Contusion of right hip, Fall from slip, trip, or stumble Condition: Stable Prescriptions: No Action carbidopa-levodopa 25-100 mg tablet See Rx Instructions .ROUTE .COMPLEX Rx Instructions: take one tab at 3:00am,one tab at 7:00am,one and one half tab at 11:00,one tab at 15:00 and one tab at 19:00 brimonidine-timolol [Combigan] 0.2-0.5 % drops 1 drp ophthalmic (eye) BID Rx Instructions: both eyes calcitriol 0.25 mcg capsule 0.25 mcg PO .TWICE WEEKLY Rx Instructions: on tamsulosin 0.4 mg capsule 0.8 mg PO BEDTIME cyanocobalamin (vitamin B-12) 1,000 mcg/mL solution 1,000 mcg IM Q30D modafinil 200 mg tablet 200 mg PO DAILY desmopressin 0.1 mg tablet PO valsartan 80 mg tablet See Rx Instructions .ROUTE .COMPLEX Qty: 180 3RF Dose Instruction: TAKE 1 TABLET BY MOUTH TWICE DAILY Rx Instructions: TAKE 1 TABLET BY MOUTH TWICE DAILY citalopram 20 mg tablet 20 mg PO QPM Qty: 30 0RF Rx Instructions: take with 10mg to =30mg citalopram 10 mg tablet See Rx Instructions .ROUTE .COMPLEX Qty: 30 2RF Dose Instruction: TAKE 1 TABLET BY MOUTH EVERY DAY WITH 20 MG Rx Instructions: TAKE 1 TABLET BY MOUTH EVERY DAY WITH 20 MG potassium chloride [Klor-Con M20] 20 mEq tablet,ER particles/crystals 20 meq PO QID Qty: 360 3RF iron 325 mg (65 mg iron) Tablet 325 mg PO DAILY@11 testosterone 20.25 mg/1.25 gram (1.62 %) gel in metered-dose pump See Rx Instructions .ROUTE .COMPLEX Rx Instructions: apply 2 pumps TO shoulders AND upper ARMS EVERY MORNING Tadalafil 20mg Melissa See Rx Instructions .ROUTE .COMPLEX Rx Instructions: with tri-mix injectable as directed Discharge Orders: Discharge ED (Routine); Ordered 11/30/23 Ordered By: Mauro Hyman Referrals: DMITRY Parada, TECHNICAL PROJECT COORDINATOR [Primary Care Provider] - Discharge Diet: Usual diet Discharge Activity: Increase activity as tolerated Patient Instructions: Contusion, Hip Contusion (ED), Opioid Safety, Pain Management Activity Restrictions/Additional Instructions: Tylenol ibuprofen as needed for discomfort. Follow-up with your primary care provider if symptoms not improved over the next week. Coding Level of Care Code ED Caption Writer for David Casas
[2023-11-30 20:35] VITALS: RESP 16
[2023-11-30] MEDS: fentaNYL 50 mcg/mL INJ 2mL 25 MCG IVP (20:35)
[2023-11-30 21:47] VITALS: BP 195/101; PULSE 93; RESP 17; O2SAT 95
[2023-11-30 21:49] VITALS: BP 195/101; PULSE 93; RESP 17; TEMP 36.7; O2SAT 95
== END 2023-11-30 21:50 | disposition home or self-care (01) ==
PROVIDERS: Emergency Provider Student in an Organized Health Care Education/Training Program; PCP Nurse Practitioner Family
DX: S70.01XA Contusion of right hip, initial encounter (principal); W01.0XXA Fall on same level from slipping, tripping and stumbling without subsequent striking against object, initial encounter
CPT/HCPCS: 70450; 72125; 73502; 96374; 99285; J3010

== ENCOUNTER → 2023-12-19 15:35 | Outpatient (BNVA) | payer MEDICARE, SELFPAY | PROVIDERS: PCP Nurse Practitioner Family; Visit Provider Nurse Practitioner Family | DX: D64.9 Anemia, unspecified (principal); E55.9 Vitamin D deficiency, unspecified | CPT/HCPCS: 73502; 82306; 82728; 83550 ==

== ENCOUNTER 2023-12-22 07:55 | Outpatient (CLI) | payer MEDICARE, SELFPAY ==
--- NOTE | 2023-12-22 08:00 | CT_ITS ---
WS: [id number] CT RIGHT HIP, NONCONTRAST HISTORY: T14.8XXA - Other injury of unspecified body region, initi... Technique: All CT scans at [facility] use at least one of these dose optimization techniques: automated exposure control; mA and/or kV adjustment per patient size (includes targeted exams where dose is matched to clinical indication); or iterative reconstruction. DLP: 265.40 mGy.cm COMPARISON: RIGHT hip radiograph 12/19/2023 Acute appearing impacted subcapital RIGHT hip fracture. Not significantly displaced. very minimal na rrowing of the hip joint. Mild soft tissue stranding from the recent trauma. No large hematoma. There is chronic muscle atrophy. Scattered calcifications in the femoral artery and deep profunda. CT/CT hip RT wo con* [id number] IMPRESSION: 1. Acute, impacted, nondisplaced subcapital RIGHT hip fracture. 2. Mild soft tissue contusion. 3. Notified JHONNY Kearney at 12/22/2023 8:42 AM.
== END 2023-12-22 07:56 | disposition home or self-care (01) ==
LOC: RAD 07:56
PROVIDERS: PCP Nurse Practitioner Family; Visit Provider Nurse Practitioner Family
DX: S72.011A Unspecified intracapsular fracture of right femur, initial encounter for closed fracture (principal); X58.XXXA Exposure to other specified factors, initial encounter
CPT/HCPCS: 73700

== ENCOUNTER 2023-12-25 09:48 | Day surgery (SDC) | payer MEDICARE, SELFPAY ==
[2023-12-25] VITALS (24 sets, daily range): BP systolic 131–209; BP diastolic 69–122; PULSE 46–66; RESP 10–20; TEMP 36.2–36.4; O2SAT 94–100
[2023-12-25] MEDS: sodium chloride 0.9% 1,000 ML 30 ML IV (10:42)
[2023-12-25] MEDS: acetaminophen 1,000 MG/100 ML PIGGYBACK 400 MG IV (10:43)
[2023-12-25] MEDS: gabapentin 300 mg Capsule PO (10:45)
[2023-12-25] MEDS: CELEcoxib 200 mg Capsule 400 MG PO (10:45)
--- NOTE | 2023-12-25 10:48 | P.ANESASSM_ITS ---
Pre-Anesthetic Assessment Height/Weight: Height 1.79 m Temp Pulse Resp BP Pulse Ox O2 Del Method 97.6 F 61 18 160/93 100 Room Air 12/25/23 10:14 12/25/23 10:14 12/25/23 10:14 12/25/23 10:14 12/25/23 10:14 12/25/23 10:17 Operation Date: 12/25/23 11:30 Proposed Procedures p Hip Screw(Right) - Lilibeth Garcia MD Familial anesthetic complications: > 8 hrs Was Beta Carine taken within 24 hours: N/A Was Clonidine taken within 24 hours: N/A Last intake: Intake Last Liquid Date 12/24/23 Last Liquid Time 17:00 Last Solid Date 12/24/23 Last Solid Time 17:00 Social No alcohol and No tobacco Exam alert, oriented x 3, clear to auscultation bilaterally and regular rate & rhythm Airway Mallampati: Class II Dentition: false CV/HEM Hypertension Request for Service CATHLAB Diagnostic Findings Patient with atypical symptoms convinced that his heart is abnormal. Coronary angiography scheduled. Procedure done from the right radial artery. No left ventriculogram done due to renal insufficiency. The coronary arteries were completely normal. 01/29/19 Request for Cardiac Stress Test CONCLUSION: Please note due to baseline abnormality of the EKG specificity and sensitivity of the EKG portion of LexiScan MIBI stress test will be low 1. EKG not suggestive of ischemia 2. Lexiscan injection unremarkable. 3. Perfusion scan will be documented separately. Electronically Signed On 01-29-2019 17:19:02 CDT by Jan Geronimo M.D. 01/29/19 NM MIBI/MIBI Stress/Rest [id number] IMPRESSIONS Medium-size area of moderate reversibility suggestive of ischemia noted in basal to mid inferior and inferolateral wall with possible lesion in RCA or circumflex territory. Please note that patient was not able to perform the prone images therefore cannot rule out artifact. EKG segment will be documented separately. Jan Geronimo MD (Electronically Signed) 01/16/19 - Echocardiogram* [id number] CONCLUSIONS Normal left ventricular size, systolic function and wall thickness, with no regional wall motion abnormalities. Grade I/IV diastolic dysfunction (abnormal relaxation filling pattern), normal to mildly elevated filling pressures. Left ventricular ejection fraction is estimated at 65 %. Mildly increased left atrial size. Structurally normal mitral valve. Mild mitral valve regurgitation. There are no prior echocardiogram studies to compare. Dr. Iam Saldana MD (Electronically Signed) Chronic Renal Insufficiency Metabolic Diabetes Mellitus Neuropsych Cerebrovascular Accident Anesthetic Plan ASA status: 3 Anesthesia: Regional (specify below) Other: Patient and family requesting spinal Risk of > 500 ml blood loss (7ml/kg in children): No Medications/Allergies Home Medications Medication Instructions Recorded Confirmed Last Taken Type calcitriol 0.25 mcg capsule 0.25 mcg PO .TWICE WEEKLY 08/13/20 12/25/23 12/21/23 History brimonidine 0.2 %-timolol 0.5 % 1 drp ophthalmic (eye) BID 01/18/22 12/25/23 12/25/23 History eye drops (Combigan) carbidopa 25 mg-levodopa 100 mg 1 tab PO DIRECTED 10/18/22 12/25/23 12/25/23 07:00 History tablet cyanocobalamin (vitamin B-12) 1,000 mcg IM Q30D 12/22/22 12/25/23 11/22/23 History 1,000 mcg/mL injection solution tamsulosin 0.4 mg capsule 0.8 mg PO BEDTIME 12/22/22 12/25/23 12/22/23 History Tadalafil 20mg Melissa See Rx Instructions .Route .COMPLEX 07/05/23 12/25/23 Unknown History ferrous sulfate 325 mg (65 mg 325 mg PO DAILY@11 07/05/23 12/25/23 12/22/23 History iron) tablet (iron) testosterone See Rx Instructions .Route .COMPLEX 07/05/23 12/25/23 12/22/23 History desmopressin 0.1 mg tablet 0.1 mg PO DAILY 10/11/23 12/25/23 12/22/23 History modafinil 200 mg tablet 200 mg PO DAILY 10/11/23 12/25/23 12/22/23 History potassium chloride 20 mEq 20 meq PO QID #360 tabs 11/20/23 12/25/23 12/22/23 Rx tablet,extended release(part/cryst) (Klor-Con M) mirabegron 25 mg tablet,extended 25 mg PO DAILY 12/19/23 12/25/23 12/22/23 History release 24 hr (Myrbetriq) citalopram 10 mg tablet 10 mg PO DAILY 12/22/23 12/25/23 12/22/23 History valsartan 80 mg tablet 80 mg PO BID 12/22/23 12/25/23 12/22/23 History Allergies Allergy/AdvReac Type Severity Reaction Status Date / Time lisinopril Allergy cough Verified 12/25/23 08:32 Current Medications Generic Name Dose Route Start Last Admin Trade Name Angelina PRN Reason Stop Dose Admin Sodium Chloride 1,000 mls @ 30 mls/hr 12/25/23 10:00 12/25/23 10:42 Sodium Chloride 0.9% IV 12/26/23 09:59 30 mls/hr .Q24H LADARIUS Administration PFSH Anesthesia Medical History (Updated 12/25/23 @ 08:54 by BASSAM Aguilar) Subcapital fracture of right hip Nondisplaced fracture Fall at home Right hip pain Hypocalcemia Vitamin D deficiency Anemia BPH (benign prostatic hyperplasia) Right flank pain Need for vaccination Dental infection Hematoma Dog bite of calf Vitamin B 12 deficiency Hypertension screen Hyperparathyroidism Chronic kidney disease (CKD) Diabetes Essential hypertension Parkinsons disease Patient recently diagnosed (06/2019) with Stage 2 Parkinson's in [place]. Anxiety and depression Needs flu shot CVA (cerebral vascular accident) 05/10/18 Patient has symtpoms of CVA and has scheduled appointment with Neurologist in [place]. Patient needs to have MRI w/wo. 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
[2023-12-25 11:43] LABS: Anion Gap 15.1 (5-19); Blood Urea Nitrogen 25 mg/dL (8-23); Calcium 8.6 mg/dL (8.5-10.5); Carbon Dioxide 27 mmol/L (22-29); Chloride 104 mmol/L (98-107); Glucose 113 mg/dL (65-115); Osmolality Calculated 299 mOsm/kg (285-295); Potassium 4.1 mmol/L (3.5-5.1); Sodium 142 mmol/L (136-145)
--- NOTE | 2023-12-25 11:45 | P.HPUD_ITS ---
Surgery/Procedure H&P Update DATE OF PROCEDURE: December 25, 2023 DATE H&P PERFORMED: 12/22/23 H&P UPDATE INFORMATION: I have reviewed H&P completed within last 30 days, I have examined patient prior to procedure, No changes to prior documentation and H&P is in [facility] EMR on date indicated PRIMARY INDICATION FOR PROCEDURE: Right subcapital hip fracture PLANNED PROCEDURE: Operation Date: 12/25/23 11:30 Proposed Procedures p Hip Screw(Right) - Lilibeth Garcia MD Related Problem List Diagnoses (1) Subcapital fracture of right hip: Qualifiers: Encounter type: initial encounter Fracture type: closed Qualified Code(s): S72.011A - Unspecified intracapsular fracture of right femur, initial encounter for closed fracture
[2023-12-25] MEDS: ceFAZolin 2,000 mg SDV 2000 MG IV (12:03)
[2023-12-25] MEDS: ceFAZolin 1,000 mg SDV 1000 MG IRRIGATION (12:51)
[2023-12-25] MEDS: BUPivacaine-epi 0.5% 10 ML INJ 30 ML INJECTION (12:52)
--- NOTE | 2023-12-25 13:55 | XR_ITS ---
WS: [id number] Exam: XR hip RT 2-3V wo/w pel* [id number] Date/Time of Exam: 12/25/2023 1:56 PM Reason For Exam: OR PICS Comparison with radiographs performed on the same day. Subcapital fracture of the RIGHT hip is now stabilized with 3 orthopedic nails in satisfactory positi on for healing. XR/XR hip RT 2-3V wo/w pel* [id number] IMPRESSION: 1. Satisfactory internal fixation of subcapital fracture of the RIGHT hip.
--- NOTE | 2023-12-25 13:55 | PM.OP ---
Operative Report Date of procedure: December 25, 2023 Pre-op diagnosis: Right subcapital hip fracture Post-op diagnosis: Right subcapital hip fracture Post-op findings: Nondisplaced, impacted right subcapital hip fracture Procedure done: Open reduction internal fixation right subcapital hip fracture with cannulated screws Implants: [place] 6.5 mm cannulated screws x 3 Specimens removed/disposition: None Pathology: None Surgeon: Lilibeth Garcia MD Interior Surface Insulation Worker: Haimda Neal who services were required for positioning, retraction, closure, and completion of the surgical procedure. Anesthesia: Spinal (With MAC, ASA 3) Estimated blood loss (mL): 10 IV fluids (mL): 400 Urine output (mL): 100 Complications: None Findings: Impacted nondisplaced right subcapital hip fracture Condition: stable Disposition: PACU (Then return to same-day surgery for discharge to home) Brief History: This 88-year-old gentleman presents today for evaluation of a right subcapital hip fracture with date of injury November 30, 2023. Initially when seen in the emergency department, x-rays were read as no acute change or fracture. Over the subsequent weeks, the patient had significant right hip pain with instability. In fact the family notes that he had several falls between November 29 and December 18. On December 18, the patient went to the [facility] to see his primary care provider JHONNY Deutsch. New x-rays were obtained at that time, and there were concerns of a possible right hip fracture and CT was then ordered. The CT was obtained on December 21. On this imaging study there was noted to be a nondisplaced subcapital hip fracture and these results were called to the primary care provider. The patient was scheduled for type proof reproducer appointment on December 24 here at the orthopedic clinic and was scheduled for surgery to follow at noon. The patient was instructed to utilize only a walker and be toe-touch weightbearing until his appointment. After discussion that was lengthy in the office, decision was made to proceed with cannulated screws. Therefore, the consents were signed, and questions were answered. Procedure: Patient is brought to the operating theater and after undergoing adequate spinal anesthetic with block, ASA 3, the patient was transferred to the fracture table. Fluoroscopy was positioned so that we could visualize the fracture in AP and lateral planes. Maintenance of position of was confirmed. Being satisfied with the position of the femoral head the leg was then prepped with DuraPrep. A shower curtain style drape was utilized to drape out the patient's right lower extremity. Patient's leg was marked in the preoperative holding area and these markings were visualized. A surgical pause was performed. We confirmed administration of preoperative IV Ancef 2 g as well as the site and side of surgery. Fluoroscopy was utilized and an incision was made in appropriate position to allow placement of 3 cannulated screws using the Larry gun as a guide. The most inferior of the inverted triangle wire was placed first. Optimal position was determined with fluoroscopy in AP and lateral. The remaining guidewires were then placed also under fluoroscopic guidance in AP and lateral planes. The Larry gun was removed and the length of guidewires was measured. The cannulated screws were then placed over the guidewire. Guidewires were advanced to appropriate position and subsequently hand tightened. Position of the screws was confirmed in AP and lateral. Being satisfied with the position of the screws, guidewires were removed. AP and lateral images were obtained utilizing fluoroscopy. Being satisfied the wound was irrigated, closure was then accomplished with 0 Vicryl in the fascial tissues and 2-0 Monocryl in the subcutaneous tissues. Skin was closed with a running 3-0 Monocryl. The wound was then injected with 10 cc bupivacaine with epinephrine. Sterile dressing was then placed consisting of Dermabond, Steri-Strips, and OpSite. The patient was returned the recovery room in satisfactory condition. There were no complications. There were no specimens. The family prefers to be discharged to home rather than admitted to the hospital. We will evaluate him determine whether or not this is appropriate given his postoperative responses. Related Problem List Diagnoses (1) Subcapital fracture of right hip:
[2023-12-25] MEDS: fentaNYL 50 mcg/mL INJ 2mL IVP (14:15)
[2023-12-25] MEDS: hyDRALAzine 20 mg/mL INJ 1 mL 10 MG IVP (14:23)
--- NOTE | 2023-12-25 15:15 | ANE.PACU2 ---
Inpatient post-anesthesia follow up: Airway intact: Yes Vital signs: Temperature 97.2 F Pulse Rate 65 Respiratory Rate 16 Blood Pressure 182/82 Pulse Oximetry 98 Oxygen Delivery Me thod Room Air Oxygen Flow Rate 5 Fraction of Inspir ed Oxygen Hydration adequate: Yes Nausea and vomiting: No Pain level: 1 Mental status: Baseline
--- NOTE | 2023-12-26 14:49 | PC.SOCIAL ---
Addendum entered by Dacia Hoffman RN 12/26/23 14:55: No other needs voiced for CM. Original Note: Pt has [facility] Pt has been discharged home from OR. He has a order. Called pt's daughter Radha. She said pt has had [facility] & is okay with them again. faxed pt's referral to [facility]. Called [facility], [place] said pt is already on services with them for PT/OT. She said they will add nursing. No
== END 2023-12-25 16:17 | disposition home or self-care (01) ==
PROVIDERS: Anesthesiology; PCP Nurse Practitioner Family; Visit Provider Specialist
PROC: (CPT 27236; principal; 2023-12-25 11:30)
DX: S72.011A Unspecified intracapsular fracture of right femur, initial encounter for closed fracture (principal); S79.911A Unspecified injury of right hip, initial encounter; W19.XXXA Unspecified fall, initial encounter; Y92.009 Unspecified place in unspecified non-institutional (private) residence as the place of occurrence of the external cause
CPT/HCPCS: 36415; 51702; 73502; 73522; 73523; 76000; 80048; 99204; C1713; J0131; J0360; J0690; J2704; J3010; J7030

== ENCOUNTER → 2024-01-08 13:31 | Outpatient (BNVA) | payer MEDICARE, SELFPAY | PROVIDERS: PCP Nurse Practitioner Family; Visit Provider Nurse Practitioner | DX: Z98.890 Other specified postprocedural states (principal); Z87.81 Personal history of (healed) traumatic fracture | CPT/HCPCS: 73502; 99024 ==

== ENCOUNTER → 2024-02-02 09:44 | Outpatient (BNVA) | payer MEDICARE, SELFPAY | PROVIDERS: PCP Nurse Practitioner Family; Visit Provider Nurse Practitioner Family | DX: I10 Essential (primary) hypertension (principal); E11.9 Type 2 diabetes mellitus without complications; N18.9 Chronic kidney disease, unspecified; G20.A2 Parkinson's disease without dyskinesia, with fluctuations; D50.9 Iron deficiency anemia, unspecified | CPT/HCPCS: 80053; 83540; 85007; 85027 ==

== ENCOUNTER → 2024-02-05 08:34 | Outpatient (BNVA) | payer MEDICARE, SELFPAY | PROVIDERS: PCP Nurse Practitioner Family; Visit Provider Nurse Practitioner Family | DX: I10 Essential (primary) hypertension (principal); N18.9 Chronic kidney disease, unspecified | CPT/HCPCS: 82043 ==

== ENCOUNTER → 2024-02-21 13:02 | Outpatient (BNVA) | payer MEDICARE, SELFPAY | PROVIDERS: PCP Nurse Practitioner Family; Visit Provider Nurse Practitioner | DX: Z98.890 Other specified postprocedural states; S72.011D Unspecified intracapsular fracture of right femur, subsequent encounter for closed fracture with routine healing; X58.XXXD Exposure to other specified factors, subsequent encounter | CPT/HCPCS: 73502; 99024 ==

== ENCOUNTER 2024-02-25 09:32 | Emergency (ER) | payer MEDICARE, SELFPAY ==
[2024-02-25 09:56] VITALS: BP 208/100; PULSE 83; RESP 18; O2SAT 95; BMI 25.8
--- NOTE | 2024-02-25 09:57 | CTR_ITS ---
PROCEDURE INFORMATION: Exam: CT Head Without Contrast Exam date and time: 02/25/2024 10:19 AM Age: 88 years old Clinical indication: Injury or trauma; Fall; Blunt trauma (contusions or hematomas); Without loss of consciousness TECHNIQUE: Imaging protocol: Computed tomography of the head without contrast. Radiation optimization: All CT scans at this facility use at least one of these dose optimization techniques: automated exposure control; mA and/or kV adjustment per patient size (includes targeted exams where dose is matched to clinical indication); or iterative reconstruction. COMPARISON: CT head wo con* [id number] 11/30/2023 8:10 PM RADIATION DOSE METRICS: Total DLP (mGy-cm): 1191.3 FINDINGS: Brain: There are bilateral periventricular white matter and centrum semiovale hypodensities, consistent with chronic ischemic small vessel disease. Old lacunar infarct in the right caudate head. Encephalomalacia in the right frontal lobe, from prior infarct. Old infarct in the left basal ganglia. No recent infarct, intracranial bleed or mass effect. Cerebral ventricles: No ventriculomegaly. Paranasal sinuses: Visualized sinuses are unremarkable. No fluid levels. Mastoid air cells: Visualized mastoid air cells are well aerated. Orbital cavities: Post bilateral cataract surgery. Bones: Mild degenerative disease at the anterior C1-C2 articulation. Soft tissues: Unremarkable. CT/CT head wo con* [id number] IMPRESSION: No large territorial infarct or intracranial bleed.
--- NOTE | 2024-02-25 09:57 | XRR_ITS ---
PROCEDURE INFORMATION: Exam: XR Pelvis Exam date and time: 02/25/2024 10:11 AM Age: 88 years old Clinical indication: Injury or trauma; Fall; Blunt trauma (contusions or hematomas); Left; Prior surgery; Surgery date: 6+ months; Surgery type: RT hip TECHNIQUE: Imaging protocol: Radiologic exam of the pelvis. Views: 1 or 2 view. COMPARISON: CR XR hip RT 2-3V wo/w pel* [id number] 02/21/2024 1:05 PM FINDINGS: Bones/joints: No hardware complications. Mild degenerative disease of bilateral acromioclavicular joints. Soft tissues: Right femoral neck percutaneous screw fixation. Vasculature: Pelvic phleboliths. XR/XR pelvis 1-2V* [id number] IMPRESSION: No acute fracture or dislocation.
--- NOTE | 2024-02-25 09:57 | XRR_ITS ---
PROCEDURE INFORMATION: Exam: XR Chest Exam date and time: 02/25/2024 10:11 AM Age: 88 years old Clinical indication: Injury or trauma; Fall; Blunt trauma (contusions or hematomas) TECHNIQUE: Imaging protocol: Radiologic exam of the chest. Views: 1 view. COMPARISON: CT chest w con* [id number] 03/15/2019 10:50 AM FINDINGS: Lungs: Unremarkable. No consolidation. Pleural spaces: Unremarkable. No pleural effusion. No pneumothorax. Heart/Mediastinum: Unremarkable. No cardiomegaly. Vasculature: Unfolding of the thoracic aorta. Bones/joints: Moderate degenerative disease of bilateral acromioclavicular and bilateral glenohumeral joints. XR/XR chest 1V portable [id number] IMPRESSION: No acute cardiopulmonary process.
--- NOTE | 2024-02-25 09:58 | ECG_ITS ---
[facility] Test Date: 2024-02-25 Pat Name: Juma Lewis Department: Room: Gender: Male Sampling Expert: : 1935 Requested By: Davi Hahn Order Number: [id number] Kanwal MD: Nena Roy M.D. Measurements Intervals [place] Rate: 91 P: 81 AK: 165 QRS: -83 QRSD: 153 T: 65 QT: 436 QTc: 538 Interpretive Statements SINUS RHYTHM WITH OCCASIONAL VENTRICULAR PREMATURE COMPLEXES POSSIBLE LEFT ATRIAL ENLARGEMENT [-0.1mV P-WAVE IN V1/V2] LEFT AXIS DEVIATION [QRS AXIS < -30] RIGHT BUNDLE BRANCH BLOCK [120+ ms QRS DURATION, UPRIGHT V1, 40+ ms S IN I/aVL/V4/V5/V6] Compared to ECG 02/27/2016 10:56:01 Ventricular premature complex(es) now present Left-axis deviation now present Right bundle-branch block now present Sinus bradycardia no longer present Electronically Signed On 02-26-2024 00:10:14 CDT by Nena Roy M.D. [id number]
--- NOTE | 2024-02-25 10:06 | CTR_ITS ---
PROCEDURE INFORMATION: Exam: CT Cervical Spine Without Contrast Exam date and time: 02/25/2024 10:19 AM Age: 88 years old Clinical indication: Injury or trauma; Fall; Blunt trauma TECHNIQUE: Imaging protocol: Computed tomography of the cervical spine without contrast. Radiation optimization: All CT scans at this facility use at least one of these dose optimization techniques: automated exposure control; mA and/or kV adjustment per patient size (includes targeted exams where dose is matched to clinical indication); or iterative reconstruction. COMPARISON: CT cervical spin wo con* [id number] 11/30/2023 8:10 PM RADIATION DOSE METRICS: Total DLP (mGy-cm): 1099 FINDINGS: Bones: No acute fracture. No spondylolisthesis. No compression deformity. Moderate degenerative of the anterior C1-C2 articulation. Small anterior multilevel osteophytes of the cervical spine. Pharynx: Left palatine tonsil calcification. Lungs: Bilateral apical fibrotic changes. Soft tissues: Nuchal ligament calcifications. CT/CT cervical spin wo con* [id number] IMPRESSION: No acute posttraumatic changes in the cervical spine.
--- NOTE | 2024-02-25 10:07 | ED_ITS ---
HPI - General Adult 2 General: Chief complaint: General Medical Stated complaint: fall, head injury, not eating or drinking Time Seen by Provider: 02/25/24 09:50 Source: family Mode of arrival: ambulatory Limitations: altered mental status History of Present Illness: 88-year-old male has a history of [place] son's and dementia family states that he has been increasingly confused having more falls and feels like he may be dehydrated as he has not been eating and drinking as much. Patient here is alert to self disoriented to time and place. Family states he had a fall this week did hit the back of his head he has not had any fevers cough vomiting or diarrhea Related Data Home Medications Medication Instructions Recorded Confirmed calcitriol 0.25 mcg capsule 0.25 mcg PO .TWICE WEEKLY 08/13/20 02/21/24 brimonidine 0.2 %-timolol 0.5 % 1 drp ophthalmic (eye) BID 01/18/22 02/21/24 eye drops (Combigan) cyanocobalamin (vitamin B-12) 1,000 mcg IM Q30D 12/22/22 02/21/24 1,000 mcg/mL injection solution tamsulosin 0.4 mg capsule 0.8 mg PO BEDTIME 12/22/22 02/21/24 Tadalafil 20mg Melissa See Rx Instructions .Route .COMPLEX 07/05/23 02/21/24 ferrous sulfate 325 mg (65 mg 325 mg PO DAILY@11 07/05/23 02/21/24 iron) tablet (iron) testosterone See Rx Instructions .Route .COMPLEX 07/05/23 02/21/24 desmopressin 0.1 mg tablet 0.1 mg PO DAILY 10/11/23 02/21/24 mirabegron 25 mg tablet,extended 25 mg PO DAILY 12/19/23 02/21/24 release 24 hr (Myrbetriq) carbidopa 25 mg-levodopa 100 mg 1 tab PO DIRECTED 02/01/24 02/21/24 tablet modafinil 200 mg tablet 100 mg PO DAILY 02/01/24 02/21/24 valsartan 80 mg tablet 80 mg PO ONCE 02/01/24 02/21/24 melatonin 3 mg capsule 3 mg PO DAILY 02/21/24 02/21/24 Previous Rx's Medication Instructions Recorded potassium chloride 20 mEq 20 meq PO QID #360 tabs 11/20/23 tablet,extended release(part/cryst) (Klor-Con M) walker #1 ea 01/08/24 citalopram 20 mg tablet 20 mg PO DAILY 30 days #30 tabs 02/16/24 Allergies Allergy/AdvReac Type Severity Reaction Status Date / Time lisinopril AdvReac cough Verified 02/21/24 13:03 Review of Systems 2 General: Reports: ROS unobtainable due to mental status PFSH ED 2 PFSH: Medical History Subcapital fracture of right hip Nondisplaced fracture Fall at home Right hip pain Hypocalcemia Vitamin D deficiency Anemia BPH (benign prostatic hyperplasia) Right flank pain Need for vaccination Dental infection Hematoma Dog bite of calf Vitamin B 12 deficiency Hypertension screen Hyperparathyroidism Chronic kidney disease (CKD) Diabetes Essential hypertension Parkinsons disease Patient recently diagnosed (06/2019) with Stage 2 Parkinson's in [place]. Anxiety and depression Needs flu shot CVA (cerebral vascular accident) 05/10/18 Patient has symtpoms of CVA and has scheduled appointment with Neurologist in [place]. Patient needs to have MRI w/wo. Surgical History S/P ORIF (open reduction internal fixation) fracture Date of procedure: December 25, 2023. Procedure done: Open reduction internal fixation right subcapital hip fracture with cannulated screws. Implants: [place] 6.5 mm cannulated screws x 3. 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 [employer] Physical Exam 2 Const: COMMON NORMALS: negative for patient oriented x3 HENMT: COMMON NORMALS: normocephalic and atraumatic HEAD & SCALP: n ormocephalic and atraumatic Neck/C-Spine: COMMON NORMALS: full ROM and supple Chest: COMMONS NORMALS: normal inspection of the chest Resp: COMMON NORMALS: normal respiratory effort Cardio: COMMON NORMALS: regular rate, regular rhythm and No murmurs present (Cardio) RATE: regular rate RHYTHM: regular rhythm Extremity: COMMON NORMALS: normal to inspection and full ROM Neuro: COMMON NORMALS: moves all extremities and no focal motor deficits; negative for patient oriented x3 Psych: COMMON NORMALS: mental status grossly normal, Normal thought process present and cooperative THOUGHT PROCESS: Normal thought process present Skin: COMMON NORMALS: no rashes or lesions noted and no wounds GENERAL SKIN EXAM: no rashes or lesions noted Course 2 Vital Signs: Vital signs: Vital Signs Pulse Rate 89 02/25/24 11:52 Respiratory Rate 16 02/25/24 11:52 Blood Pressure 181/106 02/25/24 11:52 Pulse Oximetry 98 02/25/24 11:52 Oxygen Delivery Me thod Room Air 02/25/24 11:52 MDM - General Adult Medical Decision Making Patient presents for generalized weakness he has had some frequent falls imaging blood work here is all normal is likely progression of his Parkinson's and dementia he is stable for discharge she is to follow-up with PCP and return if worsening he understands agrees to plan. Medical Records I reviewed the patient's medical records. Lab Data I reviewed the patient's lab results. 02/25/24 10:43 02/25/24 10:43 Radiology Impressions Chest X-Ray 02/25/24 09:57 IMPRESSION: No acute cardiopulmonary process. Head CT 02/25/24 09:57 IMPRESSION: No large territorial infarct or intracranial bleed. Pelvis X-Ray 02/25/24 09:57 IMPRESSION: No acute fracture or dislocation. Cervical Spine CT 02/25/24 10:06 IMPRESSION: No acute posttraumatic changes in the cervical spine. Laboratory Results WBC 7.11 10^3/uL (3.29-11.43) 02/25/24 10:43 RBC 3.86 10^6/uL (3.85-5.65) 02/25/24 10:43 Hgb 11.50 g/dL (11.27-16.99) 02/25/24 10:43 Hct 36.8 % (37-53) L 02/25/24 10:43 MCV 95.3 fl (82-101) 02/25/24 10:43 MCH 29.8 pg (27-33) 02/25/24 10:43 MCHC 31.3 g/dL (30-55) 02/25/24 10:43 RDW 14.5 % (12.1-15.1) 02/25/24 10:43 Plt Count 185 10^3/cmm (157-399) 02/25/24 10:43 MPV 10.4 fL (7.4-10.4) 02/25/24 10:43 Neut % (Auto) 72.2 % 02/25/24 10:43 Lymph % (Auto) 17.2 % 02/25/24 10:43 [place] % (Auto) 8.9 % 02/25/24 10:43 Eos % (Auto) 1.1 % 02/25/24 10:43 Baso % (Auto) 0.3 % 02/25/24 10:43 Neut # (Auto) 5.14 10^3/uL (1.8-7.7) 02/25/24 10:43 Lymph # (Auto) 1.2 10^3/uL (0.8-4.8) 02/25/24 10:43 [place] # (Auto) 0.6 10^3/uL (0.2-0.9) 02/25/24 10:43 Eos # (Auto) 0.1 10^3/uL (0.0-0.8) 02/25/24 10:43 Baso # (Auto) 0.0 10^3/uL (0.0-0.1) 02/25/24 10:43 Nucleated RBC % (auto) 0 % 02/25/24 10:43 Nucleated RBCs # 0.0 /100WBC 02/25/24 10:43 Sodium 139 mmol/L (136-145) 02/25/24 10:43 Potassium 3.7 mmol/L (3.5-5.1) 02/25/24 10:43 Chloride 103 mmol/L (98-107) 02/25/24 10:43 Carbon Dioxide 26 mmol/L (22-29) 02/25/24 10:43 Anion Gap 13.7 (5-19) 02/25/24 10:43 BUN 21 mg/dL (8-23) 02/25/24 10:43 Creatinine 1.3 mg/dL (0.7-1.2) H 02/25/24 10:43 GFR Calculation Not Reportable 02/25/24 10:43 Glucose 106 mg/dL (65-115) 02/25/24 10:43 Calculated Osmolality 291 mOsm/kg (285-295) 02/25/24 10:43 Calcium 8.3 mg/dL (8.5-10.5) L 02/25/24 10:43 Magnesium 2.1 mg/dL (1.7-2.3) 02/25/24 10:43 Total Bilirubin 0.6 mg/dL (0.15-1.2) 02/25/24 10:43 AST 18 U/L (0-40) 02/25/24 10:43 ALT 9 U/L (0-41) 02/25/24 10:43 Alkaline Phosphatase 81 U/L (40-130) 02/25/24 10:43 Total Protein 6.9 g/dL (6.6-8.7) 02/25/24 10:43 Albumin 3.6 g/dL (3.5-5.2) 02/25/24 10:43 Globulin 3.3 g/dL (1.3-4.6) 02/25/24 10:43 Urine Color Yellow (Yellow) 02/25/24 11:48 Urine Appearance Clear (CLEAR) 02/25/24 11:48 Urine pH 7.0 (5-7) 02/25/24 11:48 Ur Specific [place] 1.008 (1.005-1.030) 02/25/24 11:48 Urine Protein Trace (Negative) A 02/25/24 11:48 Urine Glucose (UA) Negative (Normal) 02/25/24 11:48 Urine Ketones Trace (Negative) 02/25/24 11:48 Urine Blood Negative (Negative) 02/25/24 11:48 Urine Nitrate Negative (Negative) 02/25/24 11:48 Urine Bilirubin Negative (Negative) 02/25/24 11:48 Urine Urobilinogen 1.0 mg/dL (Negative) 02/25/24 11:48 Ur Leukocyte Esterase Negative (Negative) 02/25/24 11:48 Urine RBC 0-4 /hpf (0-2) H 02/25/24 11:48 Urine WBC 0-4 /hpf (0-5) H 02/25/24 11:48 Ur Squamous Epith Cells 0-4 /hpf (0-5) H 02/25/24 11:48 Amorphous Sediment Not Reportable 02/25/24 11:48 Urine Bacteria Trace /hpf (NONE) 02/25/24 11:48 All radiology interpretation(s) finalized by discharge EKG Data EKG 1: I personally reviewed and interpreted this EKG as follows: EKG interpretation date: 02/25/24 EKG interpretation time: 11:49 Interpretation: nsr hr [address] elevation qrs 153 qtc 485 Computer generated interpretation: Chest X-Ray 02/25/24 09:57 IMPRESSION: No acute cardiopulmonary process. Head CT 02/25/24 09:57 IMPRESSION: No large territorial infarct or intracranial bleed. Pelvis X-Ray 02/25/24 09:57 IMPRESSION: No acute fracture or dislocation. Cervical Spine CT 02/25/24 10:06 IMPRESSION: No acute posttraumatic changes in the cervical spine. Discharge Plan Discharge Patient Disposition: Home Clinical Impression: Generalized weakness, Closed head injury Parkinsons disease Qualifiers: Dyskinesia presence: unspecified whether dyskinesia Fluctuating manifestations: with fluctuating manifestations Qualified Code(s): G20.A2 - Parkinson's disease without dyskinesia, with fluctuations Condition: Stable Prescriptions: No Action brimonidine-timolol [Combigan] 0.2-0.5 % drops 1 drp ophthalmic (eye) BID Rx Instructions: both eyes calcitriol 0.25 mcg capsule 0.25 mcg PO .TWICE WEEKLY Rx Instructions: on tamsulosin 0.4 mg capsule 0.8 mg PO BEDTIME cyanocobalamin (vitamin B-12) 1,000 mcg/mL solution 1,000 mcg IM Q30D mirabegron [Myrbetriq] 25 mg tablet extended release 24 hr 25 mg PO DAILY desmopressin 0.1 mg tablet 0.1 mg PO DAILY (DME) walker See Rx Instructions .Route .MEDSUPPLY Qty: 1 0RF Rx Instructions: As directed melatonin 3 mg capsule 3 mg PO DAILY potassium chloride [Klor-Con M20] 20 mEq tablet,ER particles/crystals 20 meq PO QID Qty: 360 3RF carbidopa-levodopa 25-100 mg tablet 1 tab PO DIRECTED Rx Instructions: take one tab at 3:00am,one tab at 7:00am,one and one half tab at 11:00,one tab at 15:00 and one tab at 19:00 and one tab at 11:00pm valsartan 80 mg tablet 80 mg PO ONCE Rx Instructions: TAKE 1 TABLET BY MOUTH TWICE DAILY modafinil 200 mg tablet 100 mg PO DAILY citalopram 20 mg tablet 20 mg PO DAILY 30 Days Qty: 30 1RF ferrous sulfate [iron] 325 mg (65 mg iron) Tablet 325 mg PO DAILY@11 testosterone 20.25 mg/1.25 gram (1.62 %) gel in metered-dose pump See Rx Instructions .ROUTE .COMPLEX Rx Instructions: apply 2 pumps TO shoulders AND upper ARMS EVERY MORNING Tadalafil 20mg Melissa See Rx Instructions .ROUTE .COMPLEX Rx Instructions: with tri-mix injectable as directed Discharge Orders: Discharge ED (Routine); Ordered 02/25/24 Ordered By: Davi Hahn Referrals: DMITRY Parada, ENVIRONMENTAL ECONOMIST [Primary Care Provider] - 4-7 days Discharge Diet: Advance as tolerated Discharge Activity: Resume usual activity Patient Instructions: Weakness (ED), Fall Prevention (ED) Coding Level of Care Code ED Starting Sheet Tank Operator for David Casas
[2024-02-25] MEDS: hyDRALAzine 20 mg/mL INJ 1 mL 10 MG IVP (10:41)
[2024-02-25] MEDS: sodium chloride 0.9% 1,000 ML 999 ML IV (10:42)
[2024-02-25 10:49] LABS: Basophils % 0.3 %; Eosinophils # 0.1 10^3/uL (0.0-0.8); Eosinophils % 1.1 %; Hematocrit 36.8 % (37-53); Lymphocytes # 1.2 10^3/uL (0.8-4.8); Lymphocytes % 17.2 %; Mean Corpuscular HGB Conc 31.3 g/dL (30-55); Mean Corpuscular Hemoglobin 29.8 pg (27-33); Mean Corpuscular Volume 95.3 fl (82-101); Mean Platelet Volume 10.4 fL (7.4-10.4); Monocytes # 0.6 10^3/uL (0.2-0.9); Monocytes % 8.9 %; Neutrophils # 5.14 10^3/uL (1.8-7.7); Neutrophils % 72.2 %; Nucleated Red Blood Cells % 0 %; Platelet Count 185 10^3/cmm (157-399); Red Blood Count 3.86 10^6/uL (3.85-5.65); Red Cell Distribution Width 14.5 % (12.1-15.1); White Blood Count 7.11 10^3/uL (3.29-11.43)
[2024-02-25 11:13] LABS: Alanine Aminotransferase 9 U/L (0-41); Albumin Level 3.6 g/dL (3.5-5.2); Alkaline Phosphatase 81 U/L (40-130); Anion Gap 13.7 (5-19); Aspartate Amino Transferase 18 U/L (0-40); Blood Urea Nitrogen 21 mg/dL (8-23); Calcium 8.3 mg/dL (8.5-10.5); Carbon Dioxide 26 mmol/L (22-29); Chloride 103 mmol/L (98-107); Creatinine Clr Calc Pharmacy 44.1108; Globulin 3.3 g/dL (1.3-4.6); Glucose 106 mg/dL (65-115); Magnesium 2.1 mg/dL (1.7-2.3); Osmolality Calculated 291 mOsm/kg (285-295); Potassium 3.7 mmol/L (3.5-5.1); Sodium 139 mmol/L (136-145); Total Bilirubin 0.6 mg/dL (0.15-1.2); Total Protein 6.9 g/dL (6.6-8.7)
[2024-02-25] MEDS: labetalol 5 mg/mL SDV 20mL 10 MG IVP (11:50)
[2024-02-25 11:52] VITALS: BP 181/106; PULSE 89; RESP 16; O2SAT 98
[2024-02-25 12:22] LABS: Bilirubin Urine Negative (Negative); Blood Urine Negative (Negative); Glucose Urine UA Negative (Normal); Ketones Urine Trace (Negative); Leukocyte Esterase Urine Negative (Negative); Nitrate Urine Negative (Negative); Protein Urine Trace (Negative); Specific Gravity, Urine 1.008 (1.005-1.030); Urine Appearance Clear (CLEAR); Urine Color Yellow (Yellow)
[2024-02-25 12:31] LABS: Add Urine Microscopic? YES; Bacteria Urine TRACE /hpf; RBC Urine 0-4 /hpf (0-2); Squamous Epithelial Cell Urine 0-4 /hpf (0-5); WBC Urine 0-4 /hpf (0-5)
== END 2024-02-25 13:21 | disposition home or self-care (01) ==
PROVIDERS: Emergency Provider Emergency Medicine; PCP Nurse Practitioner Family
DX: S09.90XA Unspecified injury of head, initial encounter (principal); R53.1 Weakness; G20.A1 Parkinson's disease without dyskinesia, without mention of fluctuations; F02.80 Dementia in other diseases classified elsewhere, unspecified severity, without behavioral disturbance, psychotic disturbance, mood disturbance, and anxiety; R29.6 Repeated falls
CPT/HCPCS: 70450; 71045; 72125; 72170; 80053; 81001; 83735; 85025; 93005; 96361; 96374; 96375; 99285; J0360; J3490; J7030

== ENCOUNTER → 2024-05-20 13:36 | Outpatient (BNVA) | payer MEDICARE, SELFPAY | PROVIDERS: PCP Nurse Practitioner Family; Visit Provider Nurse Practitioner | DX: Z98.890 Other specified postprocedural states (principal); Z87.81 Personal history of (healed) traumatic fracture; S72.011D Unspecified intracapsular fracture of right femur, subsequent encounter for closed fracture with routine healing; X58.XXXD Exposure to other specified factors, subsequent encounter | CPT/HCPCS: 73502; 99213 ==

== ENCOUNTER → 2024-05-28 11:10 | Outpatient (BNVA) | payer MEDICARE, SELFPAY | PROVIDERS: PCP Nurse Practitioner Family; Visit Provider Nurse Practitioner Family | DX: I10 Essential (primary) hypertension (principal); E55.9 Vitamin D deficiency, unspecified; D50.9 Iron deficiency anemia, unspecified; E11.9 Type 2 diabetes mellitus without complications | CPT/HCPCS: 80048; 81003; 82040; 82306; 82310; 82575; 82728; 83550; 83970; 84100; 84156; 84550; 85018 ==

== ENCOUNTER 2025-01-16 17:28 | Outpatient (CLI) | payer MEDICARE, SELFPAY ==
[2025-01-16 17:39] LABS: Glucose Urine UA Negative (Normal); Nitrate Urine Negative (Negative); Specific Gravity, Urine 1.019 (1.005-1.030)
[2025-01-16 17:44] LABS: Add Urine Microscopic? YES
== END 2025-01-16 17:29 | disposition home or self-care (01) ==
LOC: LAB 17:30
PROVIDERS: PCP Nurse Practitioner Family; Visit Provider Family Medicine
DX: N39.0 Urinary tract infection, site not specified (principal)
CPT/HCPCS: 81001; 87086

== ENCOUNTER 2025-02-06 12:15 | Outpatient (CLI) | payer MEDICARE, SELFPAY ==
[2025-02-06 12:30] LABS: Add Urine Microscopic? NO
[2025-02-06 12:37] LABS: Glucose Urine UA Negative (Normal); Nitrate Urine Negative (Negative); Specific Gravity, Urine 1.010 (1.005-1.030)
[2025-02-06 12:43] LABS: Charge for UA Resulting for Rev
== END 2025-02-06 12:16 | disposition home or self-care (01) ==
LOC: LAB 12:27
PROVIDERS: PCP Nurse Practitioner Family; Visit Provider Family Medicine
DX: N39.0 Urinary tract infection, site not specified (principal)
CPT/HCPCS: 81003; 87086

== ENCOUNTER 2025-02-24 09:00 | Emergency (ER) | payer MEDICARE, SELFPAY ==
--- NOTE | 2025-02-24 09:04 | XR_ITS ---
WS: [email or web address] Exam: XR wrist LT min 3V* [id number] Date/Time of Exam: 02/24/2025 9:21 AM Reason For Exam: fall DLP: No fracture. Mild degenerative narrowing of the radiocarpal joint. Radial artery calcifications. No soft tissue foreign bodies. IMPRESSION1. Degenerative changes as above. 2. No fracture.
--- NOTE | 2025-02-24 09:04 | XR_ITS ---
WS: [email or web address] Exam: XR forearm LT 2V [id number] Date/Time of Exam: 02/24/2025 9:21 AM Reason For Exam: fall No forearm fracture or dislocation identified. Vascular calcification seen along the volar aspect of the wrist. No soft tissue foreign bodies. Minimal degenerative changes at the elbow. XR/XR forearm LT 2V [id number] IMPRESSION: 1. No fracture or other significant finding.
--- NOTE | 2025-02-24 09:04 | XR_ITS ---
WS: [email or web address] Exam: XR elbow LT min 3V* [id number] Date/Time of Exam: 02/24/2025 9:21 AM Reason For Exam: fall DLP: No acute fracture. Posterior soft tissue swelling along the elbow and proximal ulna. No joint effusion is seen. Minimal degenerative changes. XR/XR elbow LT min 3V* [id number] IMPRESSION: 1. Posterior soft tissue swelling. No fracture or other significant finding.
--- NOTE | 2025-02-24 09:04 | CT_ITS ---
WS: [id number] CT HEAD NONCONTRAST HISTORY: fall TECHNIQUE: Contiguous axial imaging performed through the brain. Bone and soft tissue windows. Sagittal and coronal reformats reviewed. All CT scans at [facility] use at least one of these dose optimization techniques: automated exposure control; mA and/or kV adjustment per patient size (includes targeted exams where dose is matched to clinical indication); or iterative reconstruction. DLP: 1467.80 mGy.cm COMPARISON: 02/25/2024 No acute intracranial hemorrhage, midline shift or mass effect. Moderate to severe atrophy and small vessel changes. No prior large infarct. Small lacunar infarcts in the caudate heads. Moderate cerebellar atrophy. Ventricles: Mildly prominent ventricles and extra-axial spaces on the basis of atrophy. Paranasal sinuses: As visualized are clear. Mastoid air cells: Well pneumatized. Calvarium and scalp: Skull is intact with no soft tissue edema or swelling. CT/CT head wo con* [id number] IMPRESSION: 1. No acute intracranial hemorrhage or edema. 2. Moderate cerebral and cerebellar atrophy with advanced small vessel changes . 3. No acute infarct. 4. No skull fracture.
--- NOTE | 2025-02-24 09:04 | CT_ITS ---
WS: [id number] CT CERVICAL SPINE HISTORY: fall TECHNIQUE: Contiguous 2.0 mm axial imaging performed through the entire cervical spine. Sagittal and coronal reformats also performed. All CT scans at [facility] use at least one of these dose optimization techniques: automated exposure control; mA and/or kV adjustment per patient size (includes targeted exams where dose is matched to clinical indication); or iterative reconstruction. DLP: 1467.80 mGy.cm COMPARISON: 02/25/2024 Posterior cervical alignment is normal. Facet joints are normally aligned. More asymmetric narrowing of the right-sided facet joints. Lateral masses are aligned. The odontoid process is intact. Normal craniocervical junction. Bilateral facet joint arthropathy. No acute cervical fractures. Paravertebral soft tissues are normal. Extensive calcifications in the vertebral arteries. Lung apices are clear. CT/CT cervical spin wo con* [id number] IMPRESSION: No acute cervical spine fracture.
[2025-02-24 09:05] VITALS: BP 170/84; PULSE 68; RESP 17; TEMP 37.1; O2SAT 100; BMI 24.3
--- NOTE | 2025-02-24 09:24 | W.ED.FALL ---
HPI - Fall General: Chief Complaint: Fall Stated Complaint: multiple falls - left arm pain, swelling to face Source: patient and EMS Mode of arrival: EMS Limitations: altered mental status History of Present Illness: 89-year-old male here from assisted living has a history of dementia he is DNR. Patient had a fall at assisted living does have abrasion to his head also complaining of left elbow and forearm pain. Patient is able to tell me his name he is at his baseline currently. Related Data Home Medications ?Medication ?Instructions ?Recorded ?Confirmed calcitriol 0.25 mcg capsule 0.25 mcg PO .TWICE WEEKLY 08/13/20 02/24/25 cyanocobalamin (vitamin B-12) 1,000 mcg IM Q30D 12/22/22 02/24/25 1,000 mcg/mL injection solution testosterone See Rx Instructions .Route .COMPLEX 07/05/23 09/11/24 desmopressin 0.1 mg tablet 0.1 mg PO BEDTIME 10/11/23 02/24/25 mirabegron 25 mg tablet,extended 25 mg PO DAILY 12/19/23 09/11/24 release 24 hr (Myrbetriq) carbidopa 25 mg-levodopa 100 mg 1.5 tab PO TID 02/01/24 02/24/25 tablet latanoprost 0.005 % eye drops 1 drp ophthalmic (eye) BEDTIME 05/20/24 02/24/25 tamsulosin 0.4 mg capsule 0.4 mg PO ONCE 05/20/24 09/11/24 cholecalciferol (vitamin D3) 50 50 mcg PO DAILY 08/09/24 09/11/24 mcg (2,000 unit) capsule clonazepam 0.5 mg tablet mg PO 08/09/24 09/11/24 ferrous sulfate 300 mg (60 mg 150 mg PO DAILY 08/09/24 09/11/24 iron)/5 mL oral liquid memantine 5 mg tablet 10 mg PO BID 08/09/24 09/11/24 quetiapine 50 mg tablet 50 mg PO .at bedtime 08/09/24 09/11/24 rivastigmine 4.6 mg/24 hour 2.3 mg transdermal DAILY 08/09/24 09/11/24 transdermal patch acetaminophen 500 mg tablet 500 mg PO Q6H PRN Pain 02/24/25 02/24/25 carbidopa 25 mg-levodopa 100 mg 1 tab PO BEDTIME 02/24/25 02/24/25 tablet citalopram 20 mg tablet 20 mg PO BEDTIME 02/24/25 02/24/25 Previous Rx's ?Medication ?Instructions ?Recorded mupirocin 2 % topical ointment 1 applic topical BID rash #15 grams 03/06/24 potassium chloride 20 mEq 20 meq PO QID #360 tabs 08/09/24 tablet,extended release(part/cryst) (Klor-Con M) potassium chloride 40 mEq/15 mL 40 meq (15 mL) PO BID #900 mL 08/09/24 oral liquid valsartan 80 mg tablet 80 mg PO ONCE 90 days #90 tabs 08/09/24 Allergies Allergy/AdvReac Type Severity Reaction Status Date / Time lisinopril AdvReac cough Verified 09/11/24 15:54 Review of Systems General: Reports: ROS unobtainable due to mental status PFS ED PFSH: Medical History (Updated 02/24/25 @ 11:06 by Davi Hahn MD) All medications reviewed Lewy body dementia Hypokalemia Subcapital fracture of right hip Nondisplaced fracture Fall at home Right hip pain Hypocalcemia Vitamin D deficiency Anemia BPH (benign prostatic hyperplasia) Right flank pain Need for vaccination Dental infection Hematoma Dog bite of calf Vitamin B 12 deficiency Hypertension screen Hyperparathyroidism Chronic kidney disease (CKD) Diabetes Essential hypertension Parkinsons disease Patient recently diagnosed (06/2019) with Stage 2 Parkinson's in [place]. Anxiety and depression Needs flu shot CVA (cerebral vascular accident) 05/10/18 Patient has symtpoms of CVA and has scheduled appointment with Neurologist in [place]. Patient needs to have MRI w/wo. Surgical History S/P ORIF (open reduction internal fixation) fracture Date of procedure: December 25, 2023. Procedure done: Open reduction internal fixation right subcapital hip fracture with cannulated screws. Implants: [place] 6.5 mm cannulated screws x 3. 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 [employer] Physical Exam Const: COMMON NORMALS: negative for patient oriented x3 HENMT: OTHER: Abrasion noted to forehead Eye: COMMON NORMALS: Equal, round and reactive pupils present PUPIL: Yes Equal, round and reactive pupils present Neck/C-Spine: COMMON NORMALS: full ROM and supple Chest: COMMONS NORMALS: normal inspection of the chest Resp: COMMON NORMALS: normal respiratory effort, No retractions, No use of accessory muscles and clear to auscultation bilaterally AUSCULTATION: clear to auscultation bilaterally Cardio: COMMON NORMALS: regular rate, regular rhythm and No murmurs present (Cardio) RATE: regular rate RHYTHM: regular rhythm GI: COMMON NORMALS: Normal to inspection, nondistended, normoactive bowel sounds present, Soft to palpation, non-tender and no masses PALPATION: Yes Soft to palpation Extremity: NARRATIVE EXTREMITY EXAM: Tenderness swelling noted to the left elbow and forearm Neuro: COMMON NORMALS: moves all extremities and no focal motor deficits; negative for patient oriented x3 Psych: COMMON NORMALS: mental status grossly normal, Normal thought process present and cooperative THOUGHT PROCESS: Normal thought process present Skin: COMMON NORMALS: no rashes or lesions noted and no wounds GENERAL SKIN EXAM: no rashes or lesions noted Course Vital Signs: Vital signs: Vital Signs Temperature 98.8 F 02/24/25 09:05 Pulse Rate 75 02/24/25 10:03 Respiratory Rate 17 02/24/25 09:05 Blood Pressure 188/87 02/24/25 10:03 Pulse Oximetry 100 02/24/25 10:03 Oxygen Delivery Me thod Room Air 02/24/25 10:03 MDM - Fall Medical Decision Making Patient presents here after a fall from assisted living. Patient did complain of some elbow pain and had hit his head imaging here shows no acute abnormalities he has no signs of intracranial hemorrhage no signs of elbow fracture. Rest of exam here was benign. I did go over imaging with his daughter patient stable for discharge back to skilled nursing. Medical Records I reviewed the patient's medical records. Lab Data Radiology Impressions Cervical Spine CT 02/24/25 09:04 IMPRESSION: No acute cervical spine fracture. Elbow X-Ray 02/24/25 09:04 IMPRESSION: 1. Posterior soft tissue swelling. No fracture or other significant finding. Forearm X-Ray 02/24/25 09:04 IMPRESSION: 1. No fracture or other significant finding. Head CT 02/24/25 09:04 IMPRESSION: 1. No acute intracranial hemorrhage or edema. 2. Moderate cerebral and cerebellar atrophy with advanced small vessel changes. 3. No acute infarct. 4. No skull fracture. All radiology interpretation(s) finalized by discharge Discharge Plan Discharge Patient Disposition: Home Clinical Impression: Fall Qualifiers: Encounter type: initial encounter Qualified Code(s): W19.XXXA - Unspecified fall, initial encounter Closed head injury Qualifiers: Encounter type: initial encounter Qualified Code(s): S09.90XA - Unspecified injury of head, initial encounter Contusion of elbow, left Qualifiers: Encounter type: initial encounter Qualified Code(s): S50.02XA - Contusion of left elbow, initial encounter Condition: Stable Prescriptions: No Action calcitriol 0.25 mcg capsule 0.25 mcg PO .TWICE WEEKLY Rx Instructions: on Monday and cyanocobalamin (vitamin B-12) 1,000 mcg/mL solution 1,000 mcg IM Q30D tamsulosin 0.4 mg capsule 0.4 mg PO ONCE mirabegron [Myrbetriq] 25 mg tablet extended release 24 hr 25 mg PO DAILY clonazepam 0.5 mg tablet PO ferrous sulfate 300 mg (60 mg iron)/5 mL liquid 150 mg PO DAILY memantine 5 mg tablet 10 mg PO BID quetiapine 50 mg tablet 50 mg PO .at bedtime rivastigmine 4.6 mg/24 hour patch 24 hour 2.3 mg transdermal DAILY cholecalciferol (vitamin D3) 50 mcg (2,000 unit) capsule 50 mcg PO DAILY potassium chloride [Klor-Con M20] 20 mEq tablet,ER particles/crystals 20 meq PO QID Qty: 360 3RF potassium chloride 40 mEq/15 mL liquid 40 meq PO BID Qty: 900 1RF valsartan 80 mg tablet 80 mg PO ONCE 90 Days Qty: 90 1RF desmopressin 0.1 mg tablet 0.1 mg PO BEDTIME latanoprost 0.005 % drops 1 drp ophthalmic (eye) BEDTIME carbidopa-levodopa 25-100 mg tablet 1.5 tab PO TID mupirocin 2 % ointment 1 applic topical BID Qty: 15 0RF Rx Instructions: Apply ointment to skin on leg twice daily as needed testosterone 20.25 mg/1.25 gram (1.62 %) gel in metered-dose pump See Rx Instructions .ROUTE .COMPLEX Rx Instructions: apply 2 pumps TO shoulders AND upper ARMS EVERY MORNING acetaminophen 500 mg Tablet 500 mg PO Q6H PRN (Reason: Pain) carbidopa-levodopa 25-100 mg Tablet 1 tab PO BEDTIME citalopram 20 mg tablet 20 mg PO BEDTIME Discharge Orders: Discharge ED (Routine); Ordered 02/24/25 Ordered By: Davi Hahn Referrals: DMITRY Parada, OCEANOGRAPHIC METEOROLOGIST [Primary Care Provider, Family Practice] - 4-7 days Discharge Diet: Advance as tolerated Discharge Activity: Resume usual activity Patient Instructions: Head Injury (ED), Fall Prevention (ED) Print Language: Tunisian Coding Level of Care Code ED Testing Director for David Casas
--- OUTSIDE RECORDS SUMMARY | 2025-02-24 09:26 | XMS_ITS | Encounter Summary ---
Author Organization [facility] Address [address] [place] [address] Care Team Providers Care Side Guider Name Role Phone Srinivasa Vaca MD Primary Care Provider Ann raygoza Encounter Details Date Type Department Care Team (Latest Contact Info) Description 09/14/1998 Outpatient Historical [facility]- [place] 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
--- OUTSIDE RECORDS SUMMARY | 2025-02-24 09:26 | XMS_ITS | Encounter Summary ---
Author Organization [facility] Address [address] [place] [address] Care Team Providers Care Food Sales Clerk Name Role Phone Srinivasa Vaca MD Primary Care Provider Ann raygoza Encounter Details Date Type Department Care Team (Latest Contact Info) Description 09/25/1997 Outpatient Historical [facility] Urology- [place] [address]tr[address], 3rd [place] [address] Omi Vogt MD 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
--- OUTSIDE RECORDS SUMMARY | 2025-02-24 09:26 | XMS_ITS | Clinical Summary ---
Author Organization [facility] Address [address] [facility] [address] Care Team Providers Care Compressor Service Technician Name Role Phone Srinivasa Vaca MD Primary Care Provider Unavai lable Allergies No known active allergies Medications amlodipine (NORVASC) 10 mg Oral tablet Take 10 mg by mouth daily. Active ciclopirox (LOPROX) 0.77 % Cream Apply to affected area 2 times daily. 30 Gram 0 06/26/2015 Active tamsulosin (FLOMAX) 0.4 mg capsule Take 1 Capsule (0.4 mg) by mouth daily. 90 Capsule 3 07/12/2016 Active losartan (COZAAR) 100 mg tablet Take 100 mg by mouth daily. Active chlorthalidone (HYGROTON) 25 mg tablet Take 25 mg by mouth daily. Active oxyCODONE-aceta minophen (PERCOCET) 5-325 mg tablet Take 1 Tablet by mouth every 4 hours as needed for Pain. Max Daily Amount: 6 Tablets 15 Tablet 08/08/2016 Active VIAGRA 100 mg tablet USE DIRECTED 20 Tablet 12 07/23/2018 Active finasteride (PROSCAR) 5 mg tablet Take 1 Tablet (5 mg) by mouth daily. 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 Benign prostatic hyperplasia 05/04/2018 Immunizations Immunization Administration Dates Next Due Influenza Seasonal Unspecified Formulation IM Social History Tobacco Use Types Packs/Day Years Used Date Smoking Tobacco: Never Tobacco Cessation:Counseling Given: No Alcohol Use Standard Drinks/Week Comments Yes 6 (1 standard drink = 0.6 oz pur e alcohol) Sex and Gender Information Value Date Recorded Sex Assigned at Not on file Legal Sex Male 5:02 AM LAST TRIMMER Gender Identity Not on file Sexual Orientation Not on file Last Filed Vital Signs Vital Sign Reading Time Taken Comments Blood Pressure 188/102 05/11/2017 1:09 PM LAST TRIMMER Pulse 76 05/11/2017 1:09 PM LAST TRIMMER Temperature 36.1 C (97 F) 08/08/2016 9:40 AM CDT Respiratory Rate 18 08/08/2016 10:4 0 AM CDT Oxygen Saturation 99% 08/08/2016 10: 40 AM CDT Inhaled Oxygen Concentration - - Weight 92.5 kg (203 lb 14.8 oz) 05/08/2018 9:56 AM LAST TRIMMER Height 177.8 cm (5' 10 ) 05/08/2018 9:56 AM LAST TRIMMER Body Mass Index 29.26 05/08/2018 9:56 AM LAST TRIMMER Plan of Treatment Health Maintenance Due Date Last Done Comments DTAP/TDAP/TD VACCINES (1 - Tdap) 1956 PNEUMOCOCCAL VACCINE 50+ YEARS (1 of 1 - PCV) 08/06/18 88 ZOSTER VACCINE (1 of 2) 08/07/1987 RSV VACCINE (60+ or ) (1 - 1-dose 75+ series) 2012 INFLUENZA VACCINE (#1) 2024 05/10/2016 Insurance MEDICARE PART A AND B [facility] Advance Directives For more information, please contact: [phone] * Full Code (Latest Code Status on File) Date Activated Date Inactivated Comments 08/08/2016 6:28 AM 08/08/2016 8:36 PM Care Teams Compressor Service Technician Relationship Specialty Start Date End Date Srinivasa Vaca MD PCP - General 07/20/09
--- OUTSIDE RECORDS SUMMARY | 2025-02-24 09:26 | XMS_ITS | Encounter Summary ---
Author Organization [facility] Address [address] [place] [address] Care Team Providers Care Newspaper Delivery Driver Name Role Phone Srinivasa Vaca MD Primary Care Provider Ann raygoza Encounter Details Date Type Department Care Team (Latest Contact Info) Description 05/06/2005 Outpatient Historical [facility] Urology- [place] 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
--- OUTSIDE RECORDS SUMMARY | 2025-02-24 09:26 | XMS_ITS | Encounter Summary ---
Author Organization [facility] Address [address] [place] [address] Care Team Providers Care Medical Nurse Name Role Phone Srinivasa Vaca MD Primary Care Provider Ann raygoza Encounter Details Date Type Department Care Team (Latest Contact Info) Description 02/14/2003 Outpatient Historical [facility] Urology- [place] 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
--- OUTSIDE RECORDS SUMMARY | 2025-02-24 09:26 | XMS_ITS | Encounter Summary ---
Author Organization [facility] Address [address] [place] [address] Care Team Providers Care Cash Management Associate Name Role Phone Srinivasa Vaca MD Primary Care Provider Ann raygoza Encounter Details Date Type Department Care Team (Latest Contact Info) Description 02/08/2002 Outpatient Historical [facility] Urology- [place] 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
--- OUTSIDE RECORDS SUMMARY | 2025-02-24 09:26 | XMS_ITS | Encounter Summary ---
Author Organization [facility] Address [address] [place] [address] Care Team Providers Care Engine Oiler Name Role Phone rSinivasa Vaca MD Primary Care Provider Ann raygoza Encounter Details Date Type Department Care Team (Late st Contact Info) Description 06/29/2007 Outpatient Historical [facility] Urology- [place] [address], 3rd [place] [address] Omi Vogt MD [address] [place] [address] Social History Tobacco Use Types Packs/Day Years Used Date Smoking Tobacco: Never Assessed Sex and Gender Information Value Date Recorded Sex Assigned at Not on file Legal Sex Male 5:02 AM SALES ENGINEER Gender Identity Not on file Sexual Orientation Not on file documented as of this encounter Plan of Treatment Not on file documented as of this encounter Visit Diagnoses Not on filedocumented in this encounter Care Teams Engine Oiler Relationship Specialty Start Date End Date Srinivasa Vaca MD PCP - General 07/20/09 documented as of this encounter
--- OUTSIDE RECORDS SUMMARY | 2025-02-24 09:26 | XMS_ITS | Encounter Summary ---
Author Organization [facility] Address [address] [place] [address] Care Team Providers Care Entry Level Account Representative Name Role Phone Srinivasa Vaca MD Primary Care Provider Ann raygoza Encounter Details Date Type Department Care Team (Latest Contact Info) Description 03/01/2004 Outpatient Historical [facility] Urology- [place] 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
--- OUTSIDE RECORDS SUMMARY | 2025-02-24 09:26 | XMS_ITS | Encounter Summary ---
Author Organization [facility] Address [address] [place] [address] Care Team Providers Care Gusset Edger Name Role Phone Srinivasa Vaca MD Primary Care Provider Ann raygoza Encounter Details Date Type Department Care Team (Latest Contact Info) Description 12/29/2000 Outpatient Historical [facility] Urology- [place] 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
--- OUTSIDE RECORDS SUMMARY | 2025-02-24 09:26 | XMS_ITS | Encounter Summary ---
Author Organization [facility] Address [address] [place] [address] Care Team Providers Care Contingents Supervisor Name Role Phone Srinivasa Vaca MD Primary Care Provider Ann raygoza Encounter Details Date Type Department Care Team (Latest Contact Info) Description 05/12/2006 Outpatient Historical [facility] Urology- [place] 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
--- OUTSIDE RECORDS SUMMARY | 2025-02-24 09:26 | XMS_ITS | Clinical Summary ---
Author Organization [facility] Address [address] [place]: Epic Prelude ADT [place] [address] Care Team Providers Care Stick Inserter Name Role Phone Srinivasa Vaca MD Primary Care Provider Unavai lable Allergies No known active allergies Medications finasteride (PROSCAR) 5 mg tablet Take 1 Tablet (5 mg) by mouth daily. 90 Tablet 2 Active oxyCODONE-aceta minophen (PERCOCET) 5-325 mg tablet Take 1 Tablet by mouth every 4 hours as needed for Pain. Max Daily Amount: 6 Tablets 15 Tablet 0 7 Active sildenafiL (VIAGRA) 100 mg tablet USE DIRECTED 5 Tablet 12 2 Active ciclopirox (LOPROX) 0.77 % Cream Apply to affected area 2 times daily. 30 Gram 0 6 Active losartan (COZAAR) 100 mg tablet Take 100 mg by mouth daily. 7 Active chlorthalidone (HYGROTON) 25 mg tablet Take 25 mg by mouth daily. 7 Active trospium (SANCTURA) 20 mg Tablet Take 1 Tablet (20 mg) by mouth 2 times daily. 180 Tablet 3 3 Active desmopressin (DDAVP) 0.1 mg tablet Take 1 Tablet (0.1 mg) by mouth daily. 30 Tablet 1 4 Active potassium chloride (KLOR-CON M20) 20 mEq Extended Release tablet 4 Active citalopram (CeleXA) 10 mg tablet 4 Active carbidopa-levod opa (SINEMET) 25-100 mg tablet TAKE 1 TABLET BY MOUTH 5 TIMES DAILY (3 A.M., 7 A.M., 11 A.M., 3 P,M., 7 P.M.) ADD 1/2 TABLET AT 11 A.M. 4 Active modafiniL (PROVIGIL) 200 mg Tablet 4 Active calcitRIOL (ROCALTROL) 0.25 mcg capsule TAKE 1 CAPSULE BY MOUTH TWICE WEEKLY FOR 30 DAYS Active cyanocobalamin (VITAMIN B-12) 1,000 mcg/mL Solution 4 Active brimonidine-renita oloL (COMBIGAN) 0.2-0.5 % solution 4 Active tamsulosin (Flomax) 0.4 mg capsule Take 1 Capsule (0.4 mg) by mouth daily. 90 Capsule 3 4 Active desmopressin (DDAVP) 0.1 mg tablet Take 1 Tablet (0.1 mg) by mouth daily. 90 Tablet 3 4 Active testosterone (ANDROGEL) 20.25 mg/1.25 gram (1.62 %) Gel in Metered-dose PumpIndications :Hypogonadism in male Apply 40.5 mg to affected area daily. Apply to the shoulders and upper arms in the morning 75 Gram 5 4 Active Myrbetriq 25 mg Extended Release 24 hour tabletIndicatio ns:Nocturia TAKE 1 TABLET BY MOUTH EVERY DAY 30 Tablet 8 5 Active Active Problems Problem Noted Date Diagnosed Date Hypogonadism in male 05/04/2018 Benign prostatic hyperplasia 05/04/2018 Encounters Date Type Department Care Team Description 12/18/2024 External Device Data [facility] ABSTRACTION Provider, Abstract 12/17/2024 External Device Data [facility] ABSTRACTION Provider, Abstract 12/04/2024 External Device Data [facility] ABSTRACTION Provider, Abstract from Last 3 Months Immunizations Immunization Administration Dates Next Due Influenza Seasonal Unspecified Formulation IM Social History Tobacco Use Types Packs/Day Years Used Date Smoking Tobacco: Never Tobacco Cessation:Counseling Given: No Alcohol Use Standard Drinks/Week Comments Yes 6 (1 standard drink = 0.6 oz pur e alcohol) Sex and Gender Information Value Date Recorded Sex Assigned at Male 01/16/2024 9:19 AM CDT Legal Sex Male 1:28 AM SHIELD INSTALLER Gender Identity Male 01/16/2024 9:19 AM CDT Sexual Orientation Straight 01/16/2024 9: 19 AM CDT Last Filed Vital Signs Vital Sign Reading Time Taken Comments Blood Pressure 188/102 05/11/2017 1:09 PM SHIELD INSTALLER Pulse 76 05/11/2017 1:09 PM SHIELD INSTALLER Temperature 36.1 C (97 F) 08/08/2016 9:40 AM CDT Respiratory Rate 18 08/08/2016 10:40 AM CDT Oxygen Saturation - - Inhaled Oxygen Concentration - - Weight 86.6 kg (191 lb) 05/20/2021 1:47 PM SHIELD INSTALLER Height 179.1 cm (5' 10.5 ) 05/20/2021 1:47 PM CS T Body Mass Index 27.02 05/20/2021 1:47 PM SHIELD INSTALLER Plan of Treatment Health Maintenance Due Date Last Done Comments DIABETES ANNUAL FOOT EXAM 08/07/1953 DIABETES ANNUAL RETINAL EXAM 08/07/1955 DIABETES HBA1C Q 6 MONTHS 08/07/1955 DIABETES MICROALBUMIN ANNUAL SCREEN 08/07/1955 LDL CHOLESTEROL ANNUAL 08/07/1955 DTAP/TDAP/TD VACCINES (1 - Tdap) 1956 PNEUMOCOCCAL VACCINE 50+ YEA RS (1 of 2 - PCV) 1956 ZOSTER VACCINE (1 of 2) 08/07/1987 RSV VACCINE (60+ or ) (1 - 1-dose 75+ series) 2012 INFLUENZA VACCINE (#1) 2024 03/15/2022, 2016 Insurance MEDICARE PART A AND B [facility] [id number] Care Teams Stick Inserter Relationship Specialty Start Date End Date Srinivasa Vaca MD NO ADDRESS ON FILE PCP - General 07/20/09
--- OUTSIDE RECORDS SUMMARY | 2025-02-24 09:26 | XMS_ITS | Encounter Summary ---
Author Organization [facility] Address [address] [place] [address] Care Team Providers Care Drop Forge Operator Name Role Phone Srinivasa Vaca MD Primary Care Provider Ann raygoza Encounter Details Date Type Department Care Team (Latest Contact Info) Description 09/17/1999 Outpatient Historical [facility] Urology- [place] 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
[2025-02-24 10:03] VITALS: BP 188/87; PULSE 75; O2SAT 100
--- NOTE | 2025-02-24 10:26 | PC.PHAR ---
Pt is from [facility]
[2025-02-24 11:20] VITALS: PULSE 72; O2SAT 100
== END 2025-02-24 11:54 | disposition home or self-care (01) ==
PROVIDERS: Emergency Provider Emergency Medicine; PCP Nurse Practitioner Family
DX: S09.8XXA Other specified injuries of head, initial encounter (principal); S50.02XA Contusion of left elbow, initial encounter; W19.XXXA Unspecified fall, initial encounter; Z86.73 Personal history of transient ischemic attack (TIA), and cerebral infarction without residual deficits; E11.22 Type 2 diabetes mellitus with diabetic chronic kidney disease; I12.9 Hypertensive chronic kidney disease with stage 1 through stage 4 chronic kidney disease, or unspecified chronic kidney disease; N18.9 Chronic kidney disease, unspecified
CPT/HCPCS: 70450; 72125; 73080; 73090; 73110; 99284

== ENCOUNTER 2025-04-21 09:10 | Emergency (ER) | payer OTHER, SELFPAY ==
--- OUTSIDE RECORDS SUMMARY | 2024-05-22 07:00 | XMS_ITS ---
Author Organization [facility] Address [address] [place] [address] Care Team Providers Care Nurse Private Duty Name Role Phone Luann Parada Primary Care Provider UnavailKamila Guzman Unavailable [phone] Chris Savage Unavailable [phone] REASON FOR VISIT 6 MO F/U LABS AT [facility] Encounters Encounter Location Date Provider Diagnosis [facility] [address] [place] [address] [address] [place] [address] 05/22/2024 Chris Savage Plan Of Treatment No Information Progress Notes * Juma LEWIS JrDOB:1935 (89 yo M)Acc No.[id number]:05/22/2024 Progress Notes Patient: Fernanda Juma dailey Jr Provider: González Savage MD :1935 A ge:88 Y S ex:Male Date:05/22/2024 Address:[id number] [place] [address] [address] [id number] Pcp:Luann Parada Subjective: * Chief Complaints: * 6 MO F/U LABS AT [facility] Care Plan Details* * Electronic signature of Kev Savage MD on 04/21/2025 at 09:17 AM SIGNALS INTELLIGENCE SUPERINTENDENT Sign off status: Pending * Provider: González Savage MD Date: 0 05/22/2024 Generated for Printi ng/Fabrettg/eTransmitting on: 1 06/22/2024 09:17 AM SIGNALS INTELLIGENCE SUPERINTENDENT
[2025-04-21 09:13] VITALS: BP 186/117; PULSE 68; RESP 20; TEMP 36.6; O2SAT 100
--- OUTSIDE RECORDS SUMMARY | 2025-04-21 09:17 | XMS_ITS | Encounter Summary ---
Author Organization [facility] Address [address] [place] [address] Care Team Providers Care Oil Heater Installer Name Role Phone Srinivasa Vaca MD Primary Care Provider Ann raygoza Encounter Details Date Type Department Care Team (Late st Contact Info) Description 06/29/2007 Outpatient Historical [facility] Urology- [place] 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
--- OUTSIDE RECORDS SUMMARY | 2025-04-21 09:17 | XMS_ITS | Encounter Summary ---
Author Organization [facility] Address [address] [place] [address] Care Team Providers Care Steam Hoist Operator Name Role Phone Srinivasa Vaca MD Primary Care Provider Ann raygoza Encounter Details Date Type Department Care Team (Latest Contact Info) Description 12/29/2000 Outpatient Historical [facility] Urology- [place] [address], 3rd [place] [address] Omi Vogt MD [address] [place] [address] Hypertrophy of prostate (Primary Dx); Impotence of organic origin Social History Tobacco Use Types Packs/Day Years Used Date Smoking Tobacco: Never Assessed Sex and Gender Information Value Date Recorded Sex Assigned at Not on file Legal Sex Male 5:02 AM ANODIC OPERATOR Gender Identity Not on file Sexual Orientation Not on file documented as of this encounter Plan of Treatment Not on file documented as of this encounter Visit Diagnoses Diagnosis Hypertrophy of prostate- Primary Hypertrophy (benign) of prostate Impotence of organic origin documented in this encounter Care Teams Steam Hoist Operator Relationship Specialty Start Date End Date Srinivasa Vaca MD PCP - General 07/20/09 documented as of this encounter
--- OUTSIDE RECORDS SUMMARY | 2025-04-21 09:17 | XMS_ITS | Encounter Summary ---
Author Organization [facility] Address [address] [place] [address] Care Team Providers Care Education Reviewer Name Role Phone Srinivasa Vaca MD Primary Care Provider Ann raygoza Encounter Details Date Type Department Care Team (Latest Contact Info) Description 02/14/2003 Outpatient Historical [facility] Urology- [place] 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
--- OUTSIDE RECORDS SUMMARY | 2025-04-21 09:17 | XMS_ITS | Clinical Summary ---
Author Organization [facility] Address [address] 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 Gender Identity Not on file Sexual Orientation Not on file Last Filed Vital Signs Vital Sign Reading Time Taken Comments Blood Pressure 188/102 05/11/2017 1:09 PM SOIL SCIENTIST Pulse 76 05/11/2017 1:09 PM SOIL SCIENTIST Temperature 36.1 C (97 F) 08/08/2016 9:40 AM CDT Respiratory Rate 18 08/08/2016 10:4 0 AM CDT Oxygen Saturation 99% 08/08/2016 10: 40 AM CDT Inhaled Oxygen Concentration - - Weight 92.5 kg (203 lb 14.8 oz) 05/08/2018 9:56 AM SOIL SCIENTIST Height 177.8 cm (5' 10 ) 05/08/2018 9:56 AM SOIL SCIENTIST Body Mass Index 29.26 05/08/2018 9:56 AM SOIL SCIENTIST Plan of Treatment Health Maintenance Due Date Last Done Comments DTAP/TDAP/TD VACCINES (1 - Tdap) 1954 PNEUMOCOCCAL VACCINE 50+ YEARS (1 of 1 - PCV) 08/06/18 88 ZOSTER VACCINE (1 of 2) 08/07/1987 RSV VACCINE (60+ or ) (1 - 1-dose 75+ series) 2012 INFLUENZA VACCINE (#1) 2024 05/10/2016 Insurance MEDICARE PART A AND B [facility] Advance Directives For more information, please contact: [phone] * Full Code (Latest Code Status on File) Date Activated Date Inactivated Comments 08/08/2016 6:28 AM 08/08/2016 8:36 PM Care Teams Dba Relationship Specialty Start Date End Date Srinivasa Vaca MD PCP - General 07/20/09
--- OUTSIDE RECORDS SUMMARY | 2025-04-21 09:17 | XMS_ITS | Encounter Summary ---
Author Organization [facility] Address [address] [place] [address] Care Team Providers Care Inspector Filters Name Role Phone Srinivasa Vaca MD Primary Care Provider Ann raygoza Encounter Details Date Type Department Care Team (Latest Contact Info) Description 09/14/1998 Outpatient Historical [facility] Urology- [place] 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
--- OUTSIDE RECORDS SUMMARY | 2025-04-21 09:17 | XMS_ITS | Encounter Summary ---
Author Organization [facility] Address [address] [place] [address] Care Team Providers Care Contact Acid Plant Operator Helper Name Role Phone Srinivasa Vaca MD Primary Care Provider Ann raygoza Encounter Details Date Type Department Care Team (Latest Contact Info) Description 09/25/1997 Outpatient Historical [facility] Urology- [place] 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
--- OUTSIDE RECORDS SUMMARY | 2025-04-21 09:17 | XMS_ITS | Encounter Summary ---
Author Organization [facility] Address [address] [place] [address] Care Team Providers Care Vp Construction Name Role Phone Srinivasa Vaca MD Primary Care Provider Ann raygoza Encounter Details Date Type Department Care Team (Latest Contact Info) Description 05/12/2006 Outpatient Historical [facility] Urology- [place] 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
--- OUTSIDE RECORDS SUMMARY | 2025-04-21 09:17 | XMS_ITS | Encounter Summary ---
Author Organization [facility] Address [address] [place] [address] Care Team Providers Care Detective Investigator Name Role Phone Srinivasa Vaca MD Primary Care Provider Ann raygoza Encounter Details Date Type Department Care Team (Latest Contact Info) Description 03/01/2004 Outpatient Historical [facility] Urology- [place] 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
--- OUTSIDE RECORDS SUMMARY | 2025-04-21 09:17 | XMS_ITS | Encounter Summary ---
Author Organization [facility] Address [address] [place] [address] Care Team Providers Care Puffer Tender Name Role Phone Srinivasa Vaca MD Primary Care Provider Ann raygoza Encounter Details Date Type Department Care Team (Latest Contact Info) Description 05/06/2005 Outpatient Historical [facility] Urology- [place] 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
--- OUTSIDE RECORDS SUMMARY | 2025-04-21 09:17 | XMS_ITS | Patient Health Record ---
Author Organization [facility] Address [address] [place] [address] Care Team Providers Care Grounds Person Name Role Phone Luann Parada Primary Care Provider Kamila Santiago Unavailable [phone] Chris Savage Unavailable [phone] Allergies Allergen (clinical drug ingredient) Drug/Non Drug Allergy documented on EMR Reaction Allergy Type Onset Date Status lisinopril Lisinopril Unknown Drug Allergy Activ e Reason For Referral No Information Medications Medication SIG (Take, Route, Frequency, Duration) Notes Start Date End Date Status Calcitriol 0.25 MCG Capsule 1 capsule Orally twice weekly; Duration: 90 days Active Potassium Chloride 20 MEQ Tablet Extended Release 4 tablets with food Orally Once a day; Duration: 30 day(s) Active Modafinil 100 MG Tablet 0.5 tablet Orally In the morning and as needed in the evening 1 tablet in morning and if needed 1 in pm Active Vitamin B 12 shot once monthly Active Valsartan 40 MG Tablet as directed Orall y once a day Active Carbidopa-Levodopa 25-100 MG Tablet 1 tablet Orally four times a day 4 times daily 25mg mg once daily 37.5 mg qday Active Combigan 0.2-0.5 % Solution 1 drop into affected eye Ophthalmic Twice a day Active Citalopram Hydrobromide 10 MG Tablet 1 tablet Orally Once a day Active Flomax 0.4 MG Capsule 1 capsule Orally Once a day Active Desmopressin Acetate 0.1 MG Tablet 1 tablet Orally Once a day Active AndroGel Androgel daily 11/08/2016 Acti ve Iron Active Immunizations Vaccine Route Administration Date Status Comme nts Influenza (whole), CPT 57453 Inactive Unknown 05/08/2016 Administered Influenza (whole), CPT 98486 Inactive Unknown 06/25/2018 Administered Social History Tobacco Use: Social History Observation Description Date Details (start date - stop date) Never Smoker NA - NA Social History Tobacco Use: Social Info Question Answer Notes xTobacco Use/Smoking Are you a nonsmoker Tobacco use other than smoking: Are you an other tobacco user? 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 De nies Do you drink alcohol? 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 Problem Iron deficiency anemia (04859901) Iron deficiency anemia, unspecified iron deficiency anemia type (D50.9) Active confirmed Problem Chronic kidney disease stage 3 (disorder) (369371238) CKD (chronic kidney disease), stage III (N18.3) Active confirmed Problem Hypophosphatemia (7095906) Hypophosphatemia (E83.39) Active confirmed Problem Vitamin D deficiency (87683125) Vitamin D deficiency (E55.9) Active confirmed Problem Hypoalbuminemia (509609673) Hypoalbuminemia (E88.09) Active confirmed Problem Secondary hypertension (34323823) Secondary hypertension (I15.9) Active confirmed Problem Chronic kidney disease stage 2 (374698491) Chronic kidney disease, stage II (mild) (N18.2) Active confirmed Problem Proteinuria (99077074) Proteinuria (R80.9) Active confirmed Problem Hyperaldosteronism (51278084) Hyperaldosteronism (E26.9) Active confirmed Problem Hyperparathyroidism due to renal insufficiency (13098496) 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) Active confirmed Problem Chronic kidney disease stage 3A (183060438) Stage 3a chronic kidney disease (N18.31) Active confirmed Problem Chronic kidney disease stage 3 (disorder) (962895375) Stage 3 chronic kidney disease, unspecified whether stage 3a or 3b CKD (N18.30) Active confirmed Vital Signs Heart Rate 80 /min 06/04/2024 Temperature 98 degrees Fahrenheit 06/04/2024 Oximetry 97 % 06/04/2024 Blood pressure diastolic 98 mm Hg 06/04/2024 Weight-kg 78 kg 06/04/2024 Height 70 in 06/04/2024 Blood pressure systolic 168 mm Hg 06/04/2024 Weight 171.96 lbs 06/04/2024 BMI 24.67 kg/m2 06/04/2024 Encounters Encounter Location Date Provider Diagnosis [facility] [address] [place] [address] [place] [address] 06/04/2024 Kamila Farmer Hypertensive chronic kidney disease with stage 1 through stage 4 chronic kidney disease, or unspecified chronic kidney disease I12.9 ; Stage 3 chronic kidney disease, unspecified whether stage 3a or 3b CKD N18.30 ; Secondary hypertension I15.9 ; Hyperaldosteronism E26.9 ; Hypokalemia E87.6 ; Bilateral leg edema R60.0 ; Secondary hyperparathyroidism (of renal origin) N25.81 ; Vitamin D deficiency E55.9 ; Iron deficiency anemia, unspecified iron deficiency anemia type D50.9 ; Hypoalbuminemia E88.09 ; Isolated non-nephrotic proteinuria R80.0 and Nocturia R35.1 [facility] [address] [place] [address] [place] [address] 10/28/2024 Kamila Farmer [facility] [address] [place] [address] 09/09/2024 Kamila Farmer [facility] [address] [place] [address] Dr Taylor[address] [place] [address] 05/29/2024 Chris [facility] [address] [place] [address] Dr Cordon [address] [place] [address] 05/06/2024 Chris [facility] [address] [place] [address] Dr Cordon Dash-[address] [place] [address] 05/06/2024 Chris Savage Hypertensive chronic kidney disease with stage 1 through stage 4 chronic kidney disease, or unspecified chronic kidney disease I12.9 ; Hypokalemia E87.6 ; Secondary hyperparathyroidism (of renal origin) N25.81 ; Hypoalbuminemia E88.09 ; Nocturia R35.1 ; Isolated non-nephrotic proteinuria R80.0 ; Iron deficiency anemia, unspecified iron deficiency anemia type D50.9 and Vitamin D deficiency E55.9 Assessments Encounter Date Diagnosis (ICD Code) Assessment Notes Treatment Notes Treatment Clinical Notes Section Notes 05/06/2024 Hypertensive chronic kidney disease with stage 1 through stage 4 chronic kidney disease, or unspecified chronic kidney disease (ICD-10 - I12.9) 06/04/2024 Hypertensive chronic kidney disease with stage 1 through stage 4 chronic kidney disease, or unspecified chronic kidney disease (ICD-10 - I12.9) CKD has improved. Hypertension is uncontrolled in clinic but controlled at home by report. Hypokalemia is controlled. Hemoglobin is at goal for chronic kidney disease but he is iron deficient. SHPTH is controlled and he remains vitamin D deficient. Hypoalbuminemia is persistent but stable. Proteinuria was non-nephrotic on previous labs. Nocturia is stable 06/04/2024 Stage 3 chronic kidney disease, unspecified whether stage 3a or 3b CKD (ICD-10 - N18.30) Learning About Chronic Kidney Disease material was printed, Low Sodium Diet (2,000 Milligram): Care Instructions material was printed CKD has improved. Hypertension is uncontrolled in clinic but controlled at home by report. Hypokalemia is controlled. Hemoglobin is at goal for chronic kidney disease but he is iron deficient. SHPTH is controlled and he remains vitamin D deficient. Hypoalbuminemia is persistent but stable. Proteinuria was non-nephrotic on previous labs. Nocturia is stable 06/04/2024 Secondary hypertension (ICD-10 - I15.9) CKD has improved. Hypertension is uncontrolled in clinic but controlled at home by report. Hypokalemia is controlled. Hemoglobin is at goal for chronic kidney disease but he is iron deficient. SHPTH is controlled and he remains vitamin D deficient. Hypoalbuminemia is persistent but stable. Proteinuria was non-nephrotic on previous labs. Nocturia is stable 05/06/2024 Hypokalemia (ICD-10 - E87.6) 05/06/2024 Secondary hyperparathyroidis m (of renal origin) (ICD-10 - N25.81) 06/04/2024 Hyperaldosteronism (ICD-10 - E26.9) CKD has improved. Hypertension is uncontrolled in clinic but controlled at home by report. Hypokalemia is controlled. Hemoglobin is at goal for chronic kidney disease but he is iron deficient. SHPTH is controlled and he remains vitamin D deficient. Hypoalbuminemia is persistent but stable. Proteinuria was non-nephrotic on previous labs. Nocturia is stable 06/04/2024 Hypokalemia (ICD-10 - E87.6) CKD has improved. Hypertension is uncontrolled in clinic but controlled at home by report. Hypokalemia is controlled. Hemoglobin is at goal for chronic kidney disease but he is iron deficient. SHPTH is controlled and he remains vitamin D deficient. Hypoalbuminemia is persistent but stable. Proteinuria was non-nephrotic on previous labs. Nocturia is stable 05/06/2024 Hypoalbuminemia (ICD-10 - E88.09) 05/06/2024 Nocturia (ICD-10 - R35.1) 06/04/2024 Bilateral leg edema (ICD-10 - R60.0) CKD has improved. Hypertension is uncontrolled in clinic but controlled at home by report. Hypokalemia is controlled. Hemoglobin is at goal for chronic kidney disease but he is iron deficient. SHPTH is controlled and he remains vitamin D deficient. Hypoalbuminemia is persistent but stable. Proteinuria was non-nephrotic on previous labs. Nocturia is stable 06/04/2024 Secondary hyperparathyroidis m (of renal origin) (ICD-10 - N25.81) CKD has improved. Hypertension is uncontrolled in clinic but controlled at home by report. Hypokalemia is controlled. Hemoglobin is at goal for chronic kidney disease but he is iron deficient. SHPTH is controlled and he remains vitamin D deficient. Hypoalbuminemia is persistent but stable. Proteinuria was non-nephrotic on previous labs. Nocturia is stable 05/06/2024 Isolated non-nephrotic proteinuria (ICD-10 - R80.0) 05/06/2024 Iron deficiency anemia, unspecified iron deficiency anemia type (ICD-10 - D50.9) 06/04/2024 Vitamin D deficiency (ICD-10 - E55.9) CKD has improved. Hypertension is uncontrolled in clinic but controlled at home by report. Hypokalemia is controlled. Hemoglobin is at goal for chronic kidney disease but he is iron deficient. SHPTH is controlled and he remains vitamin D deficient. Hypoalbuminemia is persistent but stable. Proteinuria was non-nephrotic on previous labs. Nocturia is stable 06/04/2024 Iron deficiency anemia, unspecified iron deficiency anemia type (ICD-10 - D50.9) CKD has improved. Hypertension is uncontrolled in clinic but controlled at home by report. Hypokalemia is controlled. Hemoglobin is at goal for chronic kidney disease but he is iron deficient. SHPTH is controlled and he remains vitamin D deficient. Hypoalbuminemia is persistent but stable. Proteinuria was non-nephrotic on previous labs. Nocturia is stable 05/06/2024 Vitamin D deficiency (ICD-10 - E55.9) 06/04/2024 Hypoalbuminemia (ICD-10 - E88.09) CKD has improved. Hypertension is uncontrolled in clinic but controlled at home by report. Hypokalemia is controlled. Hemoglobin is at goal for chronic kidney disease but he is iron deficient. SHPTH is controlled and he remains vitamin D deficient. Hypoalbuminemia is persistent but stable. Proteinuria was non-nephrotic on previous labs. Nocturia is stable 06/04/2024 Isolated non-nephrotic proteinuria (ICD-10 - R80.0) CKD has improved. Hypertension is uncontrolled in clinic but controlled at home by report. Hypokalemia is controlled. Hemoglobin is at goal for chronic kidney disease but he is iron deficient. SHPTH is controlled and he remains vitamin D deficient. Hypoalbuminemia is persistent but stable. Proteinuria was non-nephrotic on previous labs. Nocturia is stable 06/04/2024 Nocturia (ICD-10 - R35.1) CKD has improved. Hypertension is uncontrolled in clinic but controlled at home by report. Hypokalemia is controlled. Hemoglobin is at goal for chronic kidney disease but he is iron deficient. SHPTH is controlled and he remains vitamin D deficient. Hypoalbuminemia is persistent but stable. Proteinuria was non-nephrotic on previous labs. Nocturia is stable 06/04/2024 Other Increase protein intake. Strongly recommend CPAP compliance. Continue low sodium diet. Continue calcitriol and start Vitamin D3 2000 units daily along with sun exposure; monitor hyperparathyroidis m labs and vitamin D. Continue current antihypertensives. Monitor blood pressure daily with goal of less than 150/90, but less than 130/80 if tolerated. Dose medications for GFR less than 60 ml/min. Avoid nephrotoxins. Risk factor modification. Continue oral iron supplement and monitor anemia labs. Follow-up in 6 months with labs at [facility] clinic in [place] Follow-up: BMP, uric, phos, pth, vitamin D, hemoglobin, iron, UA, urine microalbumin, urine creatinine The patient was instructed to follow up with their PCP for preventative health screenings. CKD has improved. Hypertension is uncontrolled in clinic but controlled at home by report. Hypokalemia is controlled. Hemoglobin is at goal for chronic kidney disease but he is iron deficient. SHPTH is controlled and he remains vitamin D deficient. Hypoalbuminemia is persistent but stable. Proteinuria was non-nephrotic on previous labs. Nocturia is stable Plan Of Treatment Pending Test Test Name Order Date Albumin 65079 12/07/2023 Basic Metabolic Panel (BMP) 51869 2023 Basic Metabolic Panel (BMP) 50338 2023 Ferritin 66201 12/07/2023 Hemoglobin 01145 12/07/2023 Iron Binding Capacity Total 78974 2023 Iron Level 00222 12/07/2023 Phosphorus (B) 78703 12/07/2023 Protein (U) Random 19493 12/07/2023 Uric Acid (B) 55762 12/07/2023 Vitamin D Total (B) 69084 12/07/2023 Microalbumin (U) Random 33036 12/07/2023 Creatinine (U) 19583 12/07/2023 UA Reflex Micro, Reflex Cult 52078, 8101 5, 47654 12/07/2023 PTH Intact 22511 12/07/2023 US Renal w/bladder-29547 11/09/2022 Basic Metabolic Panel (BMP) 00820 2022 Basic Metabolic Panel (BMP) 73529 2022 CBC w\ Auto Diff 68425 04/17/2023 Phosphorus (B) 08122 04/17/2023 Protein (U) Random 60685 04/17/2023 Uric Acid (B) 78729 04/17/2023 Creatinine (U) 91231 04/17/2023 UA Reflex Micro, Reflex Cult 47662, 8101 5, 82200 04/17/2023 PTH Intact 00592 04/17/2023 Albumin 05363 09/04/2023 Basic Metabolic Panel (BMP) 03426 2023 Hemoglobin 86722 09/04/2023 Magnesium (B) 77081 09/04/2023 Phosphorus (B) 09265 09/04/2023 Protein (U) Random 07123 09/04/2023 Uric Acid (B) 84538 09/04/2023 Creatinine (U) 53197 09/04/2023 PTH Intact 33222 09/04/2023 Albumin 10416 05/06/2024 Basic Metabolic Panel (BMP) 51844 2024 Ferritin 52224 05/06/2024 Hemoglobin 66148 05/06/2024 Iron Binding Capacity Total 66773 2024 Iron Level 67177 05/06/2024 Phosphorus (B) 52908 05/06/2024 Protein (U) Random 32686 05/06/2024 Uric Acid (B) 92066 05/06/2024 Vitamin D Total (B) 24376 05/06/2024 Microalbumin (U) Random 98516 05/06/2024 Creatinine (U) 96296 05/06/2024 UA Reflex Micro, Reflex Cult 45616, 8101 5, 93548 05/06/2024 PTH Intact 93303 05/06/2024 Future Test Test Name Order Date Albumin 74432 12/08/2024 Basic Metabolic Panel (BMP) 99919 2024 Ferritin 43736 12/08/2024 Hemoglobin 61370 12/08/2024 Iron Binding Capacity Total 02066 2024 Iron Level 58729 12/08/2024 Magnesium (B) 96598 12/08/2024 Phosphorus (B) 38512 12/08/2024 Protein (U) Random 72153 12/08/2024 Uric Acid (B) 26093 12/08/2024 Microalbumin (U) Random 32315 12/08/2024 Creatinine (U) 46078 12/08/2024 UA Reflex Micro, Reflex Cult 60929, 8101 5, 25169 12/08/2024 PTH Intact 49775 12/08/2024 % Iron Saturation (Fe & TIBC)--49060,835 50 12/08/2024 Insurance Providers Payer Name Payer Address Payer Phone Subscriber Number Group Number Insured Name Patient Relationship to Insured Coverage Start Date Coverage End Date [place] [address] [place] [phone] [id number] Juma Lewis Self - patient is the insured [facility] Medicare Supplement [address] [place] [phone] [id number] Juma Lewis Self - patient is the insured Medical (General) History Medical History History ICD Code Primary hyperaldosteronism Chronic kidney disease stage III Obstructive sleep apnea syndrome Continuous positive airway pressure vent ilation treatment Diabetes mellitus type 2 Secondary hyperparathyroidism or renal o rigin Hypokalemia Hypotestosteronism Impotence Proteinuria Secondary hypertension Vitamin D deficiency Parkinsons Glaucoma Anemia Surgical History Surgery Date(Month/Year) cholecystectomy Hospitalization History Reason Date(Month/Year) see surgical
--- OUTSIDE RECORDS SUMMARY | 2025-04-21 09:17 | XMS_ITS | Encounter Summary ---
Author Organization [facility] Address [address] [place] [address] Care Team Providers Care Sign Maintenance Name Role Phone Srinivasa Vaca MD Primary Care Provider Ann raygoza Encounter Details Date Type Department Care Team (Latest Contact Info) Description 02/08/2002 Outpatient Historical [facility] Urology- [place] 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
--- OUTSIDE RECORDS SUMMARY | 2025-04-21 09:17 | XMS_ITS | Encounter Summary ---
Author Organization [facility] Address [address] [place] [address] Care Team Providers Care Chemical Weigher Name Role Phone Srinivasa Vaca MD Primary Care Provider Ann raygoza Encounter Details Date Type Department Care Team (Latest Contact Info) Description 09/17/1999 Outpatient Historical [facility] Urology- [place] 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
--- OUTSIDE RECORDS SUMMARY | 2025-04-21 09:18 | XMS_ITS | Clinical Summary ---
Author Organization [employer] [facility] Address [address] 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 Gender Identity Male 01/16/2024 9:19 AM CDT Sexual Orientation Straight 01/16/2024 9: 19 AM CDT Last Filed Vital Signs Vital Sign Reading Time Taken Comments Blood Pressure 188/102 05/11/2017 1:09 PM WIND TURBINE TECHNICIAN Pulse 76 05/11/2017 1:09 PM WIND TURBINE TECHNICIAN Temperature 36.1 C (97 F) 08/08/2016 9:40 AM CDT Respiratory Rate 18 08/08/2016 10:40 AM CDT Oxygen Saturation - - Inhaled Oxygen Concentration - - Weight 86.6 kg (191 lb) 05/20/2021 1:47 PM WIND TURBINE TECHNICIAN Height 179.1 cm (5' 10.5 ) 05/20/2021 1:47 PM CS T Body Mass Index 27.02 05/20/2021 1:47 PM WIND TURBINE TECHNICIAN Plan of Treatment Health Maintenance Due Date [...] 2016 Insurance MEDICARE PART A AND B [facility] [id number] Care Teams Boilermaker Pipe Fitter Relationship Specialty Start Date End Date Srinivasa Vaca MD NO ADDRESS ON FILE PCP - General 07/20/09
--- NOTE | 2025-04-21 09:21 | CT_ITS ---
WS: [id number] CT HEAD NONCONTRAST HISTORY: trauma TECHNIQUE: Contiguous axial imaging performed through the brain. Bone and soft tissue windows. Sagittal and coronal reformats reviewed. All CT scans at [facility] use at least one of these dose optimization techniques: automated exposure control; mA and/or kV adjustment per patient size (includes targeted exams where dose is matched to clinical indication); or iterative reconstruction. DLP: 1143.48 mGy.cm COMPARISON: 02/24/2025 Interval development of a moderate-sized RIGHT subdural hematoma which is nearly isodense to CSF. Subacute to chronic subdural hematoma measures 8 mm at its maximum. Hematoma extends from the vertex inferiorly over the frontal and temporal lobes. There is mass effect upon the RIGHT cerebral but no midline shift. No significant midline shift due to moderate to severe atrophy. Moderate to severe atrophy and small vessel changes. Bilateral cerebellar atrophy. Small lacunar infarcts in the LEFT caudate. Ventricles: Ventricles and extra-axial spaces are prominent on the basis of atrophy. No inferior displacement of the cerebellar tonsils. Paranasal sinuses: As visualized are clear. Mastoid air cells: Well pneumatized. Calvarium and scalp: Skull is intact with no soft tissue edema or swelling. CT/CT head wo con* [id number] IMPRESSION: 1. 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 Subdural hemato ma is new since 02/24/2025 but not acute. 2. There is mass effect upon the RIGHT cerebrum by the subdural hematoma but n o midline shift. 3. Moderate to severe atrophy.
--- NOTE | 2025-04-21 09:21 | XR_ITS ---
WS: [id number] Left forearm, AP and lateral views, 04/21/2025 Clinical Data: fall Comparison: Left elbow and left forearm, 02/24/2025 Findings: No fracture or dislocations are seen. The soft tissues are normal. The visualized left wrist and elbow show no obvious abnormalities. There is a dressing overlying the proximal left forearm. No radiopaque foreign bodies are seen. XR/XR forearm LT 2V 06485 Impression: Negative for fracture of the left forearm.
--- NOTE | 2025-04-21 09:21 | CT_ITS ---
WS: [id number] CT CERVICAL SPINE HISTORY: fall TECHNIQUE: Contiguous 2.0 mm axial imaging performed through the entire cervical spine. Sagittal and coronal reformats also performed. All CT scans at [facility] use at least one of these dose optimization techniques: automated exposure control; mA and/or kV adjustment per patient size (includes targeted exams where dose is matched to clinical indication); or iterative reconstruction. DLP: 269.21 mGy.cm COMPARISON: 02/24/2025 Straightening of the normal cervical lordosis. Narrowing of the predental space. Craniocervical junction is normal. Facet joints are normally aligned. Lateral masses are aligned. The odontoid is intact. No acute thoracic spine fracture. Bilateral facet joint arthropathy. No acute disc protrusions. Vertebral artery calcifications. Lung apices are clear. CT/CT cervical spin wo con* [id number] IMPRESSION: 1. No acute cervical spine fracture.
--- NOTE | 2025-04-21 09:22 | W.ED.FALL ---
Documented by User: INDIANA Austin 04/21/25 11:18 HPI - Fall General: Chief Complaint: Fall Stated Complaint: FALL, LAC Time Seen by Provider: 04/21/25 09:14 Source: patient and EMS Mode of arrival: EMS Limitations: no limitations History of Present Illness: Patient is a nice 89-year-old male who presents to ED today for evaluation following a fall. He reportedly has a security camera in his room at [facility] and his daughter states she witnessed him fall this morning. He reportedly got out of bed. EMS states he usually has to ambulate with the help of a walker. They state he got out of bed unassisted and was reaching for something on the top shelf of his room when he fell forward. He reportedly struck his left forearm on the side of a dresser which caused a skin tear. Unsure whether he hit his head or not. There was reportedly no LOC. He arrives in a c-collar. His only complaint is pain to the skin tear of his left arm. He tells me his tetanus is up-to-date. Patient does have a history of dementia but cannot tell me his name and answers my questions appropriately. MD complaint: fall Onset (ago): hour(s) Fall from: standing Fall witnessed: yes, by bystander (on camera) Place fall occurred: detention/SNF Loss of consciousness: None Prolonged down time: no Symptoms prior to fall: none Context: tripped/slipped Location of injury - extremities: Left: forearm Severity: mild Associated symptoms-after fall: Reports no associated symptoms; Denies abdominal pain, chest pain, headache(s), hematuria, lightheadedness or neck pain Related Data Home Medications ?Medication ?Instructions ?Recorded ?Confirmed calcitriol 0.25 mcg capsule 0.25 mcg PO .TWICE WEEKLY 08/13/20 02/24/25 cyanocobalamin (vitamin B-12) 1,000 mcg IM Q30D 12/22/22 02/24/25 1,000 mcg/mL injection solution testosterone See Rx Instructions .Route .COMPLEX 07/05/23 09/11/24 desmopressin 0.1 mg tablet 0.1 mg PO BEDTIME 10/11/23 02/24/25 mirabegron 25 mg tablet,extended 25 mg PO DAILY 12/19/23 09/11/24 release 24 hr (Myrbetriq) carbidopa 25 mg-levodopa 100 mg 1.5 tab PO TID 02/01/24 02/24/25 tablet latanoprost 0.005 % eye drops 1 drp ophthalmic (eye) BEDTIME 05/20/24 02/24/25 tamsulosin 0.4 mg capsule 0.4 mg PO ONCE 05/20/24 09/11/24 cholecalciferol (vitamin D3) 50 50 mcg PO DAILY 08/09/24 09/11/24 mcg (2,000 unit) capsule clonazepam 0.5 mg tablet mg PO 08/09/24 09/11/24 ferrous sulfate 300 mg (60 mg 150 mg PO DAILY 08/09/24 09/11/24 iron)/5 mL oral liquid memantine 5 mg tablet 10 mg PO BID 08/09/24 09/11/24 quetiapine 50 mg tablet 50 mg PO .at bedtime 08/09/24 09/11/24 rivastigmine 4.6 mg/24 hour 2.3 mg transdermal DAILY 08/09/24 09/11/24 transdermal patch acetaminophen 500 mg tablet 500 mg PO Q6H PRN Pain 02/24/25 02/24/25 carbidopa 25 mg-levodopa 100 mg 1 tab PO BEDTIME 02/24/25 02/24/25 tablet citalopram 20 mg tablet 20 mg PO BEDTIME 02/24/25 02/24/25 Previous Rx's ?Medication ?Instructions ?Recorded mupirocin 2 % topical ointment 1 applic topical BID rash #15 grams 03/06/24 potassium chloride 20 mEq 20 meq PO QID #360 tabs 08/09/24 tablet,extended release(part/cryst) (Klor-Con M) potassium chloride 40 mEq/15 mL 40 meq (15 mL) PO BID #900 mL 08/09/24 oral liquid valsartan 80 mg tablet 80 mg PO ONCE 90 days #90 tabs 08/09/24 Allergies Allergy/AdvReac Type Severity Reaction Status Date / Time lisinopril AdvReac cough Verified 09/11/24 15:54 Review of Systems Eyes: Denies: change in vision Card: Denies: chest pain, palpitations, lightheadedness, syncope or pre-syncope Resp: Denies: dyspnea GI: Denies: abdominal pain, nausea or vomiting : Denies: flank pain, dysuria or hematuria Musc: Reports: extremity pain (L forearm); Denies: neck pain, back pain, extremity swelling, joint pain or joint swelling Skin/Breast: Reports: other (skin tear L forearm) Neuro: Denies: headache(s) or dizziness PFSH ED PFSH: Medical History All medications reviewed Lewy body dementia Hypokalemia Subcapital fracture of right hip Nondisplaced fracture Fall at home Right hip pain Hypocalcemia Vitamin D deficiency Anemia BPH (benign prostatic hyperplasia) Right flank pain Need for vaccination Dental infection Hematoma Dog bite of calf Vitamin B 12 deficiency Hypertension screen Hyperparathyroidism Chronic kidney disease (CKD) Diabetes Essential hypertension Parkinsons disease Patient recently diagnosed (06/2019) with Stage 2 Parkinson's in [place]. Anxiety and depression Needs flu shot CVA (cerebral vascular accident) 05/10/18 Patient has symtpoms of CVA and has scheduled appointment with Neurologist in [place]. Patient needs to have MRI w/wo. Surgical History S/P ORIF (open reduction internal fixation) fracture Date of procedure: December 25, 2023. Procedure done: Open reduction internal fixation right subcapital hip fracture with cannulated screws. Implants: [place] 6.5 mm cannulated screws x 3. 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 [employer] Physical Exam Const: COMMON NORMALS: no acute distress, average body habitus, no limitations, healthy appearing, alert and well nourished GENERAL APPEARANCE: cooperative ORIENTATION/CONSCIOUSNESS: Yes awake, Yes oriented to person and Yes oriented to place OTHER: baseline dementia but answers all my questions well-detention reports he is at normal mental baseline HENMT: COMMON NORMALS: normocephalic, atraumatic and TM's normal bilaterally HEAD & SCALP: normal to inspection, normocephalic and atraumatic; no Skaggs's sign, no hematoma and no raccoon eyes FACE & SINUS: normal facial exam TYMPANIC MEMBRANE: TM's normal bilaterally MOUTH: other (no intraoral injuries noted) Eye: COMMON NORMALS: Equal, round and reactive pupils present and EOMs intact bilaterally GENERAL EYE: appearance normal, both eyes and all related structures and normal light reflex PUPIL: Yes Equal, round and reactive pupils present DIRECT OPHTHALMOSCOPY: Yes normal light reflex Neck/C-Spine: GENERAL: Yes normal visual inspection CERVICAL SPINE: No step off deformity OTHER: in c-collar; not removed for ROM testing Chest: COMMONS NORMALS: normal inspection of the chest and normal palpation of entire chest wall Resp: COMMON NORMALS: normal respiratory effort and clear to auscultation bilaterally AUSCULTATION: clear to auscultation bilaterally Cardio: COMMON NORMALS: regular rate and regular rhythm RATE: regular rate RHYTHM: regular rhythm GI: COMMON NORMALS: Normal to inspection, nondistended, normoactive bowel sounds present, Soft to palpation, non-tender, No hepatosplenomegaly present and no masses INSPECTION: Yes normal to inspection and No abdominal wall ecchymosis AUSCULTATION: Yes normoactive bowel sounds PALPATION: Yes Soft to palpation and Yes No hepatosplenomegaly present Back/Pelvis: COMMON NORMALS: thoracic and lumbar spine normal to inspection, no thoracic nor lumbar tenderness and thoraco-lumbar ROM normal Extremity: COMMON NORMALS: full ROM, capillary refill normal, no joint enlargement, no clubbing, cyanosis or edema and no pedal edema GENERAL: Yes normal exam except as noted LEFT UPPER EXTREMITY: Yes lower arm (large skin tear L forearm) Left lower arm: Yes neurovascular exam (normal) Neuro: AMBER COMA SCALE: document GCS findings Amber coma scale eye opening: Spontaneous Amber coma scale verbal response: Orientated Amber coma scale motor response: Obey commands Amber coma scale total score: 15 COMMON NORMALS: CN's II-XII intact bilaterally, moves all extremities, no focal motor deficits and no sensory deficits noted SENSORIUM/ORIENTATION: Yes alert, Yes oriented to person and Yes oriented to place SPEECH: speech normal Skin: NARRATIVE SKIN EXAM: large skin tear L forearm-otherwise normal skin examination TRAUMA: no lacerations or abrasions Procedures Laceration Laceration 1: Site: lower extremity Side (If applicable): left Size (cm): 6.0 Description: flap, irregular and other (skin tear) Depth: simple, single layer Local Anesthetic: lidocaine 1% and with epi Amount of anesthesia used (mL): 2.0 Pre-repair: wound explored and irrigated extensively Skin layer closed with: nylon Size (cm): 5-0 Number of sutures: 8 Technique: running Course Consultations: Consultation #1: Dr. Remi Graves, [facility] neurosurgery-reviewed CT films-recommended follow up in office in 1-2 weeks Vital Signs: Vital signs: Vital Signs Temperature 97.8 F 04/21/25 09:13 Pulse Rate 68 04/21/25 09:13 Respiratory Rate 18 04/21/25 09:53 Blood Pressure 186/117 04/21/25 09:13 Pulse Oximetry 100 04/21/25 09:53 Oxygen Delivery Me thod Room Air 04/21/25 09:13 MDM - Fall Medical Decision Making Patient is a nice 89-year-old male presents to ED today from [place] following a fall. Fall was reportedly witnessed on a security camera by his daughter. Unknown whether he struck his head. His only complaint upon arrival was a skin tear to his left arm. This was copiously irrigated and repaired. Tetanus is up-to-date. CT head/cervical spine imaging obtained. C-spine is unremarkable. Head CT showing a subacute to chronic right subdural hematoma measuring 8 mm. Hematoma was new since 02/24/[address] films reviewed by [facility] neurosurgeon, Dr. Graves who recommended follow up in office in 1-2 weeks. Return precautions discussed with daughter. Wound care/infection precautions also discussed. Medical Records I reviewed the patient's medical records. Lab Data Radiology Impressions Cervical Spine CT 04/21/25 09:21 IMPRESSION: 1. No acute cervical spine fracture. Forearm X-Ray 04/21/25 09:21 Impression: Negative for fracture of the left forearm. Head CT 04/21/25 09:21 IMPRESSION: 1. 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 Subdural hematoma is new since 02/24/2025 but not acute. 2. There is mass effect upon the RIGHT cerebrum by the subdural hematoma but no midline shift. 3. Moderate to severe atrophy. All radiology interpretation(s) finalized by discharge Discharge Plan Discharge Patient Disposition: Home Clinical Impression: Subacute subdural hematoma Skin tear of left forearm without complication Qualifiers: Encounter type: initial encounter Qualified Code(s): S51.812A - Laceration without foreign body of left forearm, initial encounter Fall Qualifiers: Encounter type: initial encounter Qualified Code(s): W19.XXXA - Unspecified fall, initial encounter Condition: Stable Prescriptions: No Action calcitriol 0.25 mcg capsule 0.25 mcg PO .TWICE WEEKLY Rx Instructions: on Monday and cyanocobalamin (vitamin B-12) 1,000 mcg/mL solution 1,000 mcg IM Q30D tamsulosin 0.4 mg capsule 0.4 mg PO ONCE mirabegron [Myrbetriq] 25 mg tablet extended release 24 hr 25 mg PO DAILY clonazepam 0.5 mg tablet PO ferrous sulfate 300 mg (60 mg iron)/5 mL liquid 150 mg PO DAILY memantine 5 mg tablet 10 mg PO BID quetiapine 50 mg tablet 50 mg PO .at bedtime rivastigmine 4.6 mg/24 hour patch 24 hour 2.3 mg transdermal DAILY cholecalciferol (vitamin D3) 50 mcg (2,000 unit) capsule 50 mcg PO DAILY potassium chloride [Klor-Con M20] 20 mEq tablet,ER particles/crystals 20 meq PO QID Qty: 360 3RF potassium chloride 40 mEq/15 mL liquid 40 meq PO BID Qty: 900 1RF valsartan 80 mg tablet 80 mg PO ONCE 90 Days Qty: 90 1RF desmopressin 0.1 mg tablet 0.1 mg PO BEDTIME latanoprost 0.005 % drops 1 drp ophthalmic (eye) BEDTIME carbidopa-levodopa 25-100 mg tablet 1.5 tab PO TID mupirocin 2 % ointment 1 applic topical BID Qty: 15 0RF Rx Instructions: Apply ointment to skin on leg twice daily as needed testosterone 20.25 mg/1.25 gram (1.62 %) gel in metered-dose pump See Rx Instructions .ROUTE .COMPLEX Rx Instructions: apply 2 pumps TO shoulders AND upper ARMS EVERY MORNING acetaminophen 500 mg Tablet 500 mg PO Q6H PRN (Reason: Pain) carbidopa-levodopa 25-100 mg Tablet 1 tab PO BEDTIME citalopram 20 mg tablet 20 mg PO BEDTIME Discharge Orders: Discharge ED (Routine); Ordered 04/21/25 Ordered By: Luda Mace Referrals: DMITRY Parada, [facility] [Primary Care Provider, Family Practice] Patient Instructions: Skin Tear (ED), Patient Portal & Aravind Instructions Activity Restrictions/Additional Instructions: As we discussed, detention/[facility] team will need to continue to clean and dress his skin tear. Sutures can be removed in 7 to 10 days. Monitor for signs of infection such as redness, swelling, drainage, or any other concerns you may have. Please seek medical reevaluation if these occur. We discussed how his head CT today did show a subacute subdural hematoma (brain bleed). This was new since 02/24/25 but does not appear to be related to today's injury. I did consult with neurosurgery at [facility] who recommended follow-up in 1 to 2 weeks. Case management referral has been placed for this. Print Language: Bulgarian Coding Level of Care Code ED Laboratory Monitor for Chg Fwd Documented by User: Nina Tinoco MD 04/21/25 11:26 HPI - Fall General: Chief Complaint: Fall Stated Complaint: FALL, LAC Time Seen by Provider: 04/21/25 09:14 Related Data Home Medications ?Medication ?Instructions ?Recorded ?Confirmed calcitriol 0.25 mcg capsule 0.25 mcg PO .TWICE WEEKLY 08/13/20 02/24/25 cyanocobalamin (vitamin B-12) 1,000 mcg IM Q30D 12/22/22 02/24/25 1,000 mcg/mL injection solution testosterone See Rx Instructions .Route .COMPLEX 07/05/23 09/11/24 desmopressin 0.1 mg tablet 0.1 mg PO BEDTIME 10/11/23 02/24/25 mirabegron 25 mg tablet,extended 25 mg PO DAILY 12/19/23 09/11/24 release 24 hr (Myrbetriq) carbidopa 25 mg-levodopa 100 mg 1.5 tab PO TID 02/01/24 02/24/25 tablet latanoprost 0.005 % eye drops 1 drp ophthalmic (eye) BEDTIME 05/20/24 02/24/25 tamsulosin 0.4 mg capsule 0.4 mg PO ONCE 05/20/24 09/11/24 cholecalciferol (vitamin D3) 50 50 mcg PO DAILY 08/09/24 09/11/24 mcg (2,000 unit) capsule clonazepam 0.5 mg tablet mg PO 08/09/24 09/11/24 ferrous sulfate 300 mg (60 mg 150 mg PO DAILY 08/09/24 09/11/24 iron)/5 mL oral liquid memantine 5 mg tablet 10 mg PO BID 08/09/24 09/11/24 quetiapine 50 mg tablet 50 mg PO .at bedtime 08/09/24 09/11/24 rivastigmine 4.6 mg/24 hour 2.3 mg transdermal DAILY 08/09/24 09/11/24 transdermal patch acetaminophen 500 mg tablet 500 mg PO Q6H PRN Pain 02/24/25 02/24/25 carbidopa 25 mg-levodopa 100 mg 1 tab PO BEDTIME 02/24/25 02/24/25 tablet citalopram 20 mg tablet 20 mg PO BEDTIME 02/24/25 02/24/25 Previous Rx's ?Medication ?Instructions ?Recorded mupirocin 2 % topical ointment 1 applic topical BID rash #15 grams 03/06/24 potassium chloride 20 mEq 20 meq PO QID #360 tabs 08/09/24 tablet,extended release(part/cryst) (Klor-Con M) potassium chloride 40 mEq/15 mL 40 meq (15 mL) PO BID #900 mL 08/09/24 oral liquid valsartan 80 mg tablet 80 mg PO ONCE 90 days #90 tabs 08/09/24 Allergies Allergy/AdvReac Type Severity Reaction Status Date / Time lisinopril AdvReac cough Verified 09/11/24 15:54 [facility] ED [facility]: Medical History All medications reviewed Lewy body dementia Hypokalemia Subcapital fracture of right hip Nondisplaced fracture Fall at home Right hip pain Hypocalcemia Vitamin D deficiency Anemia BPH (benign prostatic hyperplasia) Right flank pain Need for vaccination Dental infection Hematoma Dog bite of calf Vitamin B 12 deficiency Hypertension screen Hyperparathyroidism Chronic kidney disease (CKD) Diabetes Essential hypertension Parkinsons disease Patient recently diagnosed (06/2019) with Stage 2 Parkinson's in [place]. Anxiety and depression Needs flu shot CVA (cerebral vascular accident) 05/10/18 Patient has symtpoms of CVA and has scheduled appointment with Neurologist in [place]. Patient needs to have MRI w/wo. Surgical History S/P ORIF (open reduction internal fixation) fracture Date of procedure: December 25, 2023. Procedure done: Open reduction internal fixation right subcapital hip fracture with cannulated screws. Implants: [place] 6.5 mm cannulated screws x 3. 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 Fall was reportedly witnessed on a security camera by his daughter. Unknown whether he struck his head. His only complaint upon arrival was a skin tear to his left arm. This was copiously irrigated and repaired. Tetanus is up-to-date. CT head/cervical spine imaging obtained. C-spine is unremarkable. Head CT showing a subacute to chronic right subdural hematoma measuring 8 mm. Hematoma was new since 02/24/[address] [facility] Dr. Graves who recommended follow up in office in 1-2 weeks. Return precautions discussed with daughter. Wound care/infection precautions also discussed. The case was discussed with the midlevel provider. Evaluation and management service: I agree with the evaluation and management decisions made in this patient's care. Results interpretation: I agree with the study interpretation in this patient's care, I agree with the documentation of the study interpretation. Lab Data Radiology Impressions Cervical Spine CT 04/21/25 09:21 IMPRESSION: 1. No acute cervical spine fracture. Forearm X-Ray 04/21/25 09:21 Impression: Negative for fracture of the left forearm. Head CT 04/21/25 09:21 IMPRESSION: 1. 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 Subdural hematoma is new since 02/24/2025 but not acute. 2. There is mass effect upon the RIGHT cerebrum by the subdural hematoma but no midline shift. 3. Moderate to severe atrophy. Discharge Plan Discharge Patient Disposition: Home Clinical Impression: Subacute subdural hematoma Skin tear of left forearm without complication Qualifiers: Encounter type: initial encounter Qualified Code(s): S51.812A - Laceration without foreign body of left forearm, initial encounter Fall Qualifiers: Encounter type: initial encounter Qualified Code(s): W19.XXXA - Unspecified fall, initial encounter Condition: Stable Prescriptions: No Action calcitriol 0.25 mcg capsule 0.25 mcg PO .TWICE WEEKLY Rx Instructions: on Monday and cyanocobalamin (vitamin B-12) 1,000 mcg/mL solution 1,000 mcg IM Q30D tamsulosin 0.4 mg capsule 0.4 mg PO ONCE mirabegron [Myrbetriq] 25 mg tablet extended release 24 hr 25 mg PO DAILY clonazepam 0.5 mg tablet PO ferrous sulfate 300 mg (60 mg iron)/5 mL liquid 150 mg PO DAILY memantine 5 mg tablet 10 mg PO BID quetiapine 50 mg tablet 50 mg PO .at bedtime rivastigmine 4.6 mg/24 hour patch 24 hour 2.3 mg transdermal DAILY cholecalciferol (vitamin D3) 50 mcg (2,000 unit) capsule 50 mcg PO DAILY potassium chloride [Klor-Con M20] 20 mEq tablet,ER particles/crystals 20 meq PO QID Qty: 360 3RF potassium chloride 40 mEq/15 mL liquid 40 meq PO BID Qty: 900 1RF valsartan 80 mg tablet 80 mg PO ONCE 90 Days Qty: 90 1RF desmopressin 0.1 mg tablet 0.1 mg PO BEDTIME latanoprost 0.005 % drops 1 drp ophthalmic (eye) BEDTIME carbidopa-levodopa 25-100 mg tablet 1.5 tab PO TID mupirocin 2 % ointment 1 applic topical BID Qty: 15 0RF Rx Instructions: Apply ointment to skin on leg twice daily as needed testosterone 20.25 mg/1.25 gram (1.62 %) gel in metered-dose pump See Rx Instructions .ROUTE .COMPLEX Rx Instructions: apply 2 pumps TO shoulders AND upper ARMS EVERY MORNING acetaminophen 500 mg Tablet 500 mg PO Q6H PRN (Reason: Pain) carbidopa-levodopa 25-100 mg Tablet 1 tab PO BEDTIME citalopram 20 mg tablet 20 mg PO BEDTIME Discharge Orders: Discharge ED (Routine); Ordered 04/21/25 Ordered By: Luda Mace Referrals: DMITRY Parada, JHONNY [Primary Care Provider, Family Practice] Patient Instructions: Skin Tear (ED), Patient Portal & Aravind Instructions Activity Restrictions/Additional Instructions: As we discussed, detention/[facility] team will need to continue to clean and dress his skin tear. Sutures can be removed in 7 to 10 days. Monitor for signs of infection such as redness, swelling, drainage, or any other concerns you may have. Please seek medical reevaluation if these occur. We discussed how his head CT today did show a subacute subdural hematoma (brain bleed). This was new since 02/24/25 but does not appear to be related to today's injury. I did consult with neurosurgery at [facility] who recommended follow-up in 1 to 2 weeks. Case management referral has been placed for this. Print Language: Bulgarian Coding Level of Care Code ED Laboratory Monitor for David Casas
[2025-04-21 09:53] VITALS: RESP 18; O2SAT 100
[2025-04-21] MEDS: ondansetron 2 mg/ML SDV 2 mL 4 MG IM (09:53)
[2025-04-21] MEDS: morphine 4 mg/mL SDV 1 mL IM (09:53)
[2025-04-21] MEDS: lidocaine-prilocaine cream 5 gm 2 APPLIC TOPICAL (09:54)
[2025-04-21] MEDS: lidocaine-epi 1% 20 mL INJ INJECTION (11:18)
[2025-04-21 11:35] VITALS: BP 189/102; PULSE 59; O2SAT 100
--- NOTE | 2025-04-21 12:06 | PC.PHAR ---
Pt is resident at [place]
== END 2025-04-21 12:14 | disposition home or self-care (01) ==
PROVIDERS: Emergency Provider Physician Assistant; PCP Nurse Practitioner Family
DX: S51.812A Laceration without foreign body of left forearm, initial encounter (principal); S06.5XAA Traumatic subdural hemorrhage with loss of consciousness status unknown, initial encounter; W19.XXXA Unspecified fall, initial encounter; Z86.73 Personal history of transient ischemic attack (TIA), and cerebral infarction without residual deficits; E11.22 Type 2 diabetes mellitus with diabetic chronic kidney disease; I12.9 Hypertensive chronic kidney disease with stage 1 through stage 4 chronic kidney disease, or unspecified chronic kidney disease; N18.9 Chronic kidney disease, unspecified
CPT/HCPCS: 12002; 70450; 72125; 73090; 96372; 99284; J2270; J2405; J9999